=== PATIENT | female | born 1955 | race Caucasian/White ===

== ENCOUNTER 2019-02-04 13:33 | Inpatient (IN) ==
--- OUTSIDE RECORDS SUMMARY | 2019-02-04 13:36 | External Medical Summary | Continuity of Care Document ---
:1955 Author Name Kaya Márquez Address Unavailable Unavailable , Care Team Providers Name Role Phone Charli Márquez Unavailable [email or web address] PCP, UNKNOWN Unavailable Unavailable Problems Active medical history not documented Allergies and Adverse Reactions Allergy history not documented Medications Medications not documented Procedures Procedures not documented Immunizations Immunizations not documented Plan of Treatment Planned Observations Planned Goals not documented Results No Known Results Results not documented
[2019-02-04] MEDS ORDERED: ONDANSETRON INJ 2 MG/ML 2 ML VIAL IV STA (14:11)
[2019-02-04] MEDS ORDERED: ACETAMINOPHEN 500 MG TAB PO STA (14:11)
[2019-02-04] MEDS ORDERED: KETOROLAC TROMETHAMINE 15 MG/ML VIAL IV STA (14:11)
[2019-02-04] MEDS ORDERED: cefTRIAXone SODIUM 2,000 MG/70 ML BAG IV STA (14:15)
--- NOTE | 2019-02-04 14:21 | Emergency Department Note ---
History of Present Illness General Chief complaint: Urinary Symptoms Stated complaint: FEVER,BODYACHE,HEADACHE Time Seen by Provider: 02/04/19 13:55 History of Present Illness Maximum Pain Intensity: 7 Patient is a 63-year-old female referred to the emergency department by her primary care provider for evaluation of urinary symptoms, fever, body muscle aches and a headache x3 days. Patient reports that she was in [place] for a conference this week, her symptoms started on Thursday with urinary frequency urgency and dysuria. The following day she was very chilled and had the shakes, but did not have a thermometer to take her temperature. When she returned home yesterday evening temperature was 102 F orally for which she took Tylenol. She has had a mild headache, feels generally achy and weak, has some cramping in her calves and admits to anorexia. She has been trying to drink a lot of water because she feels like she is dry. She denies any nausea, vomiting or diarrhea. She called her primary care provider this morning to make an appointment. They did call in a prescription for Bactrim for her, but she did not start this, rather went to the office this afternoon. She was noted to be febrile there, her urine dip in the office was "dirty" and given her symptoms, they referred her here to the emergency department. She does report aching across her low back, but no localized flank pain. She is on methotrexate weekly for rheumatoid arthritis. Home Medications Home Medications Medication Instructions Recorded Confirmed Type atorvastatin 40 mg PO QPM 02/04/19 02/04/19 History calcium carbonate-vitamin D3 1 tab PO DAILY 02/04/19 02/04/19 History [Calcium 600 + D(3)] cholecalciferol (vitamin D3) 1,000 unit PO DAILY 02/04/19 02/04/19 History [Vitamin D3] cyanocobalamin (vitamin B-12) 1,000 mcg IM UD 02/04/19 02/04/19 History cyclobenzaprine 10 mg PO DAILY 02/04/19 02/04/19 History folic acid 1 mg PO DAILY 02/04/19 02/04/19 History metformin 500 mg PO BIDM 02/04/19 02/04/19 History methotrexate sodium 20 mg PO WK 02/04/19 02/04/19 History metoprolol succinate 25 mg PO QPM 02/04/19 02/04/19 History omega 1-hgg-yul-fish oil [Fish Oil] 1 cap PO DAILY 02/04/19 02/04/19 History pediatric multivitamin 1 tab PO DAILY 02/04/19 02/04/19 History [Flintstones Multivitamin] tofacitinib [Xeljanz XR] 11 mg PO DAILY 02/04/19 02/04/19 History triamcinolone acetonide 1 applic TOPICAL BID PRN 02/04/19 02/04/19 History Allergies Allergy/AdvReac Type Severity Reaction Status Date / Time pseudoephedrine AdvReac Intermediate INCREASES Unverified 02/04/19 15:12 HEART RATE Past Med/Surg History Medical History Diabetes mellitus, type II (Chronic) Rheumatoid arthritis (Chronic) GALLEGOS (nonalcoholic steatohepatitis) (Chronic) Dyslipidemia (Chronic) CAD (coronary artery disease) (Chronic) "mild, non obstructive cath 2012 - 40% mid RCA lesion" Palpitations (Chronic) Uterine cancer (Chronic) Surgical History History of hysterectomy (Chronic) H/O laminectomy (Chronic) H/O gastric bypass (Chronic) H/O ventral hernia repair (Chronic) History of tonsillectomy and adenoidectomy (Chronic) Family History Other Alzheimer disease Heart disease Thyroid disorder Social History Preferred Language: Khmer Communication Ability: Effective Chief Gauger Required: No Beliefs That Will Affect Care: None Current Living Situation: Spouse Other Information That Helps Us Care for You: No Feels Safe at Home: Yes Safety Concerns: Feels Safe At This Time Smoking Status: Never smoker Do You Dip or Chew Tobacco: No ; Second Hand Exposure: No ; Tobacco Cessation Education Requested by Patient: No Hx Alcohol Use: No Hx Substance Use: No Review of Systems A total of 10 systems reviewed and were otherwise negative Physical Exam Vital Signs Vital Signs - 24 hr 02/04/19 13:41 02/04/19 14:43 02/04/19 15:30 Temperature 39.1 C H 37.7 C H Temperature Source Oral Oral Sepsis Recent Fever Within 48 Hours Yes Sepsis New/Unexplained Change in Mental Status No Sepsis Action Taken by Nursing No Action Required Pulse Rate 121 H Pulse Rate [Right Finger] 93 H Pulse Rhythm Regular Pulse Rhythm [Right Finger] Regular Pulse Strength Normal Respiratory Rate 20 20 Respiratory Effort / Characteristics Non-Labored Spontaneous Non-Labored Respiratory Depth Normal Normal Respiratory Pattern Regular Regular Blood Pressure 173/80 H Blood Pressure [Right Arm] 133/83 Blood Pressure Mean 111 Blood Pressure Mean [Right Arm] 99 Blood Pressure Position Sitting Blood Pressure Position [Right Arm] Lying Pulse Oximetry 98 93 Oxygen Delivery Method Room Air Room Air 02/04/19 15:31 Temperature 37.7 C H Temperature Source Oral Sepsis Recent Fever Within 48 Hours Sepsis New/Unexplained Change in Mental Status Sepsis Action Taken by Nursing Pulse Rate Pulse Rate [Right Finger] Pulse Rhythm Pulse Rhythm [Right Finger] Pulse Strength Respiratory Rate Respiratory Effort / Characteristics Respiratory Depth Respiratory Pattern Blood Pressure Blood Pressure [Right Arm] Blood Pressure Mean Blood Pressure Mean [Right Arm] Blood Pressure Position Blood Pressure Position [Right Arm] Pulse Oximetry Oxygen Delivery Method CONSTITUTIONAL: Patient is a well-appearing 63-year-old female who is awake and alert and in no acute distress. She is nontoxic in appearance. EYES: Pupils equal, round, reactive to light and accommodation. EOMs intact without nystagmus. Sclera are anicteric. ENT: Tympanic membranes intact, with normal landmarks. External canals are clear. Oral and nasopharynx are clear. Mucous membranes are moist, no lesions, tongue and gums appear normal. CARDIOVASCULAR: Regular rate and rhythm, with normal S1 and S2, no murmur or gallop or rub is heard. Peripheral pulses easily palpable. RESPIRATORY: Breath sounds equal and clear to auscultation without wheezes, rales, or rhonchi heard. Full and equal chest expansion without accessory muscle use or retractions. ABDOMEN: Bowel sounds are present. Multiple well-healed surgical scars are noted. Abdomen is soft, mildly tender to palpation in the suprapubic region, no guarding, rebound or rigidity. She does have discomfort bilaterally with CVA percussion. INTEGUMENTARY: No lesions or rash, normal skin turgor. LYMPH: No lymphadenopathy. Course The patient was seen and assessed as above. Old records were reviewed. She does have paperwork [facility] which was also reviewed. She presents to the emergency department febrile and tachycardic with urinary symptoms and now back and side pain for the last 3 days. IV lock was initiated, she was hydrated with a total of 2 L of normal saline solution. She was medicated with Zofran for nausea, Toradol for fever and body muscle aches, and given Tylenol 1 g orally for her fever. She was given ceftriaxone 2 g IV empirically after laboratory studies and urine were collected. CBC with differential, CMP, urinalysis, [id number] lactic acid, urine culture and blood culture x2 were obtained. Given her symptoms, CT scan of the abdomen pelvis with IV contrast was ordered. I did discuss the patient with attending physician, Dr. Daniel, who agreed with the ED workup. Laboratory studies noted a slightly elevated white count at 11,200, with left shift noted. No anemia. Electrolytes are without significant abnormality. Renal functions are normal. Transaminases are not elevated. Lqxzm-dl-kukw lactic acid is normal at 1.25. Urine microscopy notes nitrates, leukocyte esterase, a large amount of WBCs and RBCs and 4+ bacteria. Urine culture and blood cultures x2 are pending. CT scan of the abdomen and pelvis is consistent with cystitis and ascending UTI with right-sided pyelonephritis. Laboratory and diagnostic imaging studies were reviewed with the patient and her family. Admission/observation for IV antibiotics due to the severity of her illness and immune compromised status was recommended and she expressed understanding and agreement. [facility] Patient's vital signs improved with fever management and IV hydration. She was afebrile and only slightly tachycardic, she remained normotensive. Administered Medications Discontinued Medications Acetaminophen (Tylenol) 1,000 mg PO NOW STA Stop: 02/04/19 14:12 Last Admin: 02/04/19 14:36 Dose: 1,000 mg Documented by: [id number] Sodium Chloride (Nss 1000ml) 1,000 mls @ 999 mls/hr IV .Q1H1M DIXON Stop: 02/04/19 16:13 Last Infusion: 02/04/19 15:40 Dose: 0 mls/hr Documented by: [id number] Admin: 02/04/19 14:37 Dose: 999 mls/hr Documented by: [id number] Ceftriaxone Sodium (Rocephin) 2,000 mg in 70 mls @ 140 mls/hr IV NOW STA Stop: 02/04/19 14:44 Last Infusion: 02/04/19 15:08 Dose: 0 mls/hr Documented by: [id number] Admin: 02/04/19 14:37 Dose: 140 mls/hr Documented by: [id number] Ioversol (Optiray 320 100ml) 92 ml IV ONCE PRN PRN Reason: Interaction Checking Stop: 02/08/19 15:18 Last Admin: 02/04/19 15:20 Dose: 92 ml Documented by: [id number] Ketorolac Tromethamine (Toradol) 15 mg IV NOW STA Stop: 02/04/19 14:12 Last Admin: 02/04/19 14:36 Dose: 15 mg Documented by: [id number] Ondansetron HCl (Zofran) 4 mg IV NOW STA Stop: 02/04/19 14:12 Last Admin: 02/04/19 14:36 Dose: 4 mg Documented by: [id number] Medical Decision Making Differential Diagnosis Differential diagnoses entertained included UTI, pyelonephritis, renal colic, sepsis, bowel obstruction, perforation, abscess, among others. Medical Records Attestation: I reviewed the patient's medical records. Home Medications Current Medication List: was personally reviewed by me Laboratory Data Attestation: I reviewed the patient's lab results. Result diagrams: 02/04/19 14:16 02/04/19 14:16 Lab Results 02/04/19 02/04/19 02/04/19 Range/Units 13:56 14:16 14:16 WBC 11.23 H (4.8-10.8) K/uL RBC 4.03 L (4.2-5.4) M/uL Hgb 12.8 (12.0-16.0) g/dL Hct 37.4 (37-47) % MCV 92.8 (80-100) fL MCH 31.8 (25-34) pg MCHC 34.2 (32-36) g/dL RDW Std Deviation 49.7 H (36.4-46.3) fL RDW Coeff of Kevin 14.6 H (11.5-14.5) % Plt Count 243 (130-400) K/uL MPV 9.5 (7.4-10.4) fL Immature Gran % (Auto) 0.2 % Neut % (Auto) 86.0 % Lymph % (Auto) 6.9 % Bledsoe % (Auto) 6.6 % Eos % (Auto) 0.1 % Baso % (Auto) 0.2 % Immature Gran # (Auto) 0.02 (0.00-0.02) K/uL Neut # (Auto) 9.66 H (1.4-6.5) K/uL Lymph # (Auto) 0.78 L (1.2-3.4) K/uL Bledsoe # (Auto) 0.74 H (0.11-0.59) K/uL Eos # (Auto) 0.01 (0-0.5) K/uL Baso # (Auto) 0.02 (0-0.2) K/uL Sodium 132 L (136-145) mmol/L Potassium 3.9 (3.5-5.1) mmol/L Chloride 101 (98-107) mmol/L Carbon Dioxide 21 (21-32) mmol/L Anion Gap 10.0 (3-11) BUN 13 (7-18) mg/dl Creatinine 0.83 (0.6-1.2) mg/dl Est Cr Clr Drug Dosing 75.2 ml/min Est GFR ( Amer) 86.4 Est GFR (Non-Af Amer) 74.5 BUN/Creatinine Ratio 15.5 (10-20) Glucose 171 H (70-99) mg/dl POC Lactic Acid Abdirizak (0.90-1.70) mmol/L Calcium 9.8 (8.5-10.1) mg/dl Total Bilirubin 1.0 (0.2-1) mg/dl AST 17 (15-37) U/L ALT 25 (12-78) U/L Alkaline Phosphatase 79 (45-117) U/L Total Protein 8.1 (6.4-8.2) gm/dl Albumin 3.6 (3.4-5.0) gm/dl Globulin 4.5 H (2.5-4.0) gm/dl Albumin/Globulin Ratio 0.8 L (0.9-2) Urine Color Dark Yellow Urine Appearance Turbid A (Clear) Urine pH 5.5 (4.5-7.5) Ur Specific [place] 1.019 (1.000-1.030) Urine Protein 2+ H (Negative) Urine Glucose (UA) Negative (Negative) Urine Ketones 1+ H (Negative) Urine Blood 2+ H (Negative) Urine Nitrite Positive A (Negative) Urine Bilirubin Negative (Negative) Urine Urobilinogen Negative (Negative) Ur Leukocyte Esterase 3+ H (Negative) Urine WBC (Auto) >30 H (0-5) /hpf Urine RBC (Auto) 10-30 H (0-4) /hpf U Hyaline Cast (Auto) 1-5 (0-5) /lpf U Epithel Cells (Auto) >30 H (0-5) /lpf Urine Bacteria (Auto) 4+ H (Negative) Urine Yeast Not Reportable 02/04/19 Range/Units 14:33 WBC (4.8-10.8) K/uL RBC (4.2-5.4) M/uL Hgb (12.0-16.0) g/dL Hct (37-47) % MCV (80-100) fL MCH (25-34) pg MCHC (32-36) g/dL RDW Std Deviation (36.4-46.3) fL RDW Coeff of Kevin (11.5-14.5) % Plt Count (130-400) K/uL MPV (7.4-10.4) fL Immature Gran % (Auto) % Neut % (Auto) % Lymph % (Auto) % Bledsoe % (Auto) % Eos % (Auto) % Baso % (Auto) % Immature Gran # (Auto) (0.00-0.02) K/uL Neut # (Auto) (1.4-6.5) K/uL Lymph # (Auto) (1.2-3.4) K/uL Bledsoe # (Auto) (0.11-0.59) K/uL Eos # (Auto) (0-0.5) K/uL Baso # (Auto) (0-0.2) K/uL Sodium (136-145) mmol/L Potassium (3.5-5.1) mmol/L Chloride (98-107) mmol/L Carbon Dioxide (21-32) mmol/L Anion Gap (3-11) BUN (7-18) mg/dl Creatinine (0.6-1.2) mg/dl Est Cr Clr Drug Dosing ml/min Est GFR ( Amer) Est GFR (Non-Af Amer) BUN/Creatinine Ratio (10-20) Glucose (70-99) mg/dl POC Lactic Acid Abdirizak 1.25 (0.90-1.70) mmol/L Calcium (8.5-10.1) mg/dl Total Bilirubin (0.2-1) mg/dl AST (15-37) U/L ALT (12-78) U/L Alkaline Phosphatase (45-117) U/L Total Protein (6.4-8.2) gm/dl Albumin (3.4-5.0) gm/dl Globulin (2.5-4.0) gm/dl Albumin/Globulin Ratio (0.9-2) Urine Color Urine Appearance (Clear) Urine pH (4.5-7.5) Ur Specific [place] (1.000-1.030) Urine Protein (Negative) Urine Glucose (UA) (Negative) Urine Ketones (Negative) Urine Blood (Negative) Urine Nitrite (Negative) Urine Bilirubin (Negative) Urine Urobilinogen (Negative) Ur Leukocyte Esterase (Negative) Urine WBC (Auto) (0-5) /hpf Urine RBC (Auto) (0-4) /hpf U Hyaline Cast (Auto) (0-5) /lpf U Epithel Cells (Auto) (0-5) /lpf Urine Bacteria (Auto) (Negative) Urine Yeast Imaging Data Attestation: I personally reviewed and interpreted this imaging study as follows: Radiologist's Impression: CT SCAN OF THE ABDOMEN AND PELVIS WITH IV CONTRAST CLINICAL HISTORY: Fever. Flank pain. Dysuria. COMPARISON STUDY: MRCP dated 06/14/2015. TECHNIQUE: Following the IV administration of 92 cc of Optiray 320, CT scan of the abdomen and pelvis is performed from the lung bases to the proximal femora. Images are reviewed in the axial, sagittal, and coronal planes. IV contrast was administered without complication. A dose lowering technique was utilized adhe ring to the principles of ALARA. CT DOSE: 1077.01 mGycm FINDINGS: Lung bases: The heart is normal in size and without pericardial effusion. The coronary arteries are densely calcified. The lung bases are clear noting bibasilar atelectasis. Liver: The contrast-enhanced liver is normal in size, contour, and attenuation. There is no intrahepatic biliary ductal dilatation. The hepatic veins and portal veins are patent. Gallbladder: Surgically absent noting clips in the gallbladder fossa. Spleen: Normal in size and attenuation. Pancreas: Unremarkable. Adrenal glands: Unremarkable. Kidneys: The contrast enhanced kidneys demonstrate cortical atrophy and are without hydronephrosis. There is heterogeneous perfusion of the right kidney with a striated nephrogram. The left kidney enhances homogeneously. There is urothelial thickening within the right ureter and the right renal pelvis with right-sided perinephric stranding. Abdominal vasculature: The abdominal aorta is normal in course and caliber noting advanced atherosclerotic calcification. Stomach and bowel: Postoperative changes consistent with a history of Oxana-en-Y gastric bypass procedure. There is no bowel obstruction. The appendix is well- visualized and normal. There is a large ventral hernia in the pelvis with diastases of the rectus musculature and protrusion of bowel loops. Peritoneum: There is no intraperitoneal free air or abdominal ascites. Lymphadenopathy: None. Pelvic viscera: The bladder wall appears circumferentially thickened and hyperemic. There is mild pericystic stranding. The uterus is surgically absent. No adnexal lesion is seen. Skeletal structures: The skeletal structures are osteopenic. Mild to moderate lumbosacral spondylosis is observed. No lytic or blastic lesions are seen. IMPRESSION: 1. Findings are typical for cystitis. 2. Findings suggest ascending urinary tract infection and right-sided pyelonephritis. Correlation with clinical findings and urinalysis will be required. 3. There is postoperative change consistent with a Oxana-en-Y gastric bypass procedure. No bowel obstruction is seen. 4. There is a large ventral hernia in the pelvis with diastases of the rectus musculature and protrusion of bowel loops. 5. Additional findings as above. Blood Pressure Blood Pressure Findings: Normal blood pressure Blood Pressure Disposition: did not require urgent referral MDM Narrative See ED Course. Impression & Plan Acute pyelonephritis Discharge Plan Visit Data *Final* Discharge Date/Time: 02/04/19 17:52 Chief Complaint: Urinary Symptoms Stated Complaint: FEVER,BODYACHE,HEADACHE ED Provider: Dejon Daniel ED Midlevel Provider: Warren Trent Discharge Problem: Acute pyelonephritis Patient Disposition: Admitted As Inpatient Discharge Instructions Interventions: ED Discharge Assessment Last Done: 02/04/19 17:52
[2019-02-04] MEDS: SODIUM CHLORIDE 0.9% 1000ML 1,000 ML IV SCH ×5 (14:37→20:47)
[2019-02-04 14:40] LABS: Basophils # (auto) 0.02 K/uL (0-0.2); Basophils % (auto) 0.2 %; Eosinophils # (auto) 0.01 K/uL (0-0.5); Eosinophils % (auto) 0.1 %; Hematocrit (blood only) 37.4 % (37-47); Hemoglobin 12.8 g/dL (12.0-16.0); Immature Granulocytes # (auto) 0.02 K/uL (0.00-0.02); Immature Granulocytes % (auto) 0.2 %; Lymphocytes # (auto) 0.78 K/uL (1.2-3.4); Lymphocytes % (auto) 6.9 %; Mean Corpuscular Hemoglobin 31.8 pg (25-34); Mean Corpuscular Hgb Conc 34.2 g/dL (32-36); Mean Corpuscular Volume 92.8 fL (80-100); Mean Platelet Volume 9.5 fL (7.4-10.4); Monocytes # (auto) 0.74 K/uL (0.11-0.59); Monocytes % (auto) 6.6 %; Neutrophils # (auto) 9.66 K/uL (1.4-6.5); Platelet Count 243 K/uL (130-400); RDW Coefficient of Variation 14.6 % (11.5-14.5); RDW Standard Deviation 49.7 fL (36.4-46.3); Red Blood Count 4.03 M/uL (4.2-5.4); White Blood Count 11.23 K/uL (4.8-10.8)
[2019-02-04 14:41] LABS: Appearance Urine Turbid (Clear); Bacteria Urine Automated 4+ (Negative); Bilirubin Urine Negative (Negative); Blood Urine 2+ (Negative); Color Urine Dark Yellow; Epithelial Cell Urine Auto >30 /lpf (0-5); Glucose Urine UA Negative (Negative); Ketones Urine 1+ (Negative); Leukocyte Esterase Urine 3+ (Negative); Nitrite Urine Positive (Negative); Protein Urine 2+ (Negative); Specific Gravity Urine 1.019 (1.000-1.030); Urobilinogen Urine Negative (Negative); WBC Urine Automated >30 /hpf (0-5); pH Urine 5.5 (4.5-7.5)
[2019-02-04 14:59] LABS: Albumin Level 3.6 gm/dl (3.4-5.0); BUN Creatinine Ratio 15.5 (10-20); Calcium 9.8 mg/dl (8.5-10.1); Creatinine Clr Calc Pharmacy 75.2 ml/min; Est GFR (African American) 86.4; Est GFR (Non-African American) 74.5; Potassium 3.9 mmol/L (3.5-5.1)
[2019-02-04 15:04] LABS: Albumin Globulin Ratio 0.8 (0.9-2); Globulin 4.5 gm/dl (2.5-4.0); Total Protein 8.1 gm/dl (6.4-8.2)
[2019-02-04] MEDS ORDERED: IOVERSOL 100ml IV PRN (15:19)
--- NOTE | 2019-02-04 15:34 | CT Scan Report ---
CT SCAN OF THE ABDOMEN AND PELVIS WITH IV CONTRAST CLINICAL HISTORY: Fever. Flank pain. Dysuria. COMPARISON STUDY: MRCP dated 06/14/2015. TECHNIQUE: Following the IV administration of 92 cc of Optiray 320, CT scan of the abdomen and pelvi s is performed from the lung bases to the proximal femora. Images are reviewed in the axial, sagittal , and coronal planes. IV contrast was administered without complication. A dose lowering technique wa s utilized adhering to the principles of ALARA. CT DOSE: 1077.01 mGycm FINDINGS: Lung bases: The heart is normal in size and without pericardial effusion. The coronary arteries are d ensely calcified. The lung bases are clear noting bibasilar atelectasis. Liver: The contrast-enhanced liver is normal in size, contour, and attenuation. There is no intrahepa tic biliary ductal dilatation. The hepatic veins and portal veins are patent. Gallbladder: Surgically absent noting clips in the gallbladder fossa. Spleen: Normal in size and attenuation. Pancreas: Unremarkable. Adrenal glands: Unremarkable. Kidneys: The contrast enhanced kidneys demonstrate cortical atrophy and are without hydronephrosis. T here is heterogeneous perfusion of the right kidney with a striated nephrogram. The left kidney enhan yesi homogeneously. There is urothelial thickening within the right ureter and the right renal pelvis with right-sided perinephric stranding. Abdominal vasculature: The abdominal aorta is normal in course and caliber noting advanced atheroscle rotic calcification. Stomach and bowel: Postoperative changes consistent with a history of Oxana-en-Y gastric bypass proced ure. There is no bowel obstruction. The appendix is well-visualized and normal. There is a large bill tral hernia in the pelvis with diastases of the rectus musculature and protrusion of bowel loops. Peritoneum: There is no intraperitoneal free air or abdominal ascites. Lymphadenopathy: None. Pelvic viscera: The bladder wall appears circumferentially thickened and hyperemic. There is mild per icystic stranding. The uterus is surgically absent. No adnexal lesion is seen. Skeletal structures: The skeletal structures are osteopenic. Mild to moderate lumbosacral spondylosis is observed. No lytic or blastic lesions are seen. IMPRESSION: 1. Findings are typical for cystitis. 2. Findings suggest ascending urinary tract infection and right-sided pyelonephritis. Correlation wit h clinical findings and urinalysis will be required. 3. There is postoperative change consistent with a Oxana-en-Y gastric bypass procedure. No bowel obstr uction is seen. 4. There is a large ventral hernia in the pelvis with diastases of the rectus musculature and protrus ion of bowel loops. 5. Additional findings as above. Electronically signed by: Dipesh Knight M.D. 02/04/2019 3:32 PM
--- NOTE | 2019-02-04 16:40 | History & Physical Report ---
Date of Service February 04, 2019 Assessment & Plan (1) Acute pyelonephritis: Pt is 63 y/o F with PMH HTN, dyslipidemia, RA, depression, obesity s/p gastric bypass, GERD, DM II, CAD presented with c/o dysuria, urinary frequency x 4 days. Also c/o fever 102F, generalized weakness, ALICIA, body aches, decreased appetite past couple of days. In ER T: 39.1, P: 121 down to 93, BP: 173/80 down to 133/83, 98% on RA. WBC: 11, Na corrected at 133 for glucose of 171, POC Lactate: 1.2. UA: consistent with UTI CT ABD/PELVIS:Findings are typical for cystitis. Findings suggest ascending urinary tract infection and right-sided pyelonephritis. Correlation with clinical findings and urinalysis will be required. There is postoperative change consistent with a Oxana-en-Y gastric bypass procedure. No bowel obstruction is seen. There is a large ventral hernia in the pelvis with diastases of the rectus musculature and protrusion of bowel loops. -In ER given Rocephin, 1L NSS, Tylenol, Zofran, Toradol -Blood cultures and Urine culture pending -Rocephin -IVF -CBC, BMP in am (2) Rheumatoid arthritis: Follows with Dr [facility] in [place] -Continue Flexeril -Hold Xeljanz, methotrexate with current infection (3) CAD (coronary artery disease): Mild non-obstructive disease on [id number] - 40% mid RCA lesion -Continue metoprolol, statin (4) Diabetes mellitus, type II: A1c: 7.3 on 08/27/18 -Hold metformin while in hospital -Metformin should be held for 48 hours after received IVP dye today -Novolog sliding scale per protocol (5) Dyslipidemia: -Continue statin DVT Prophylaxis -Lovenox SQ Follows with Dr Pastrana for routine care Pt was seen and care coordinated with Dr Diallo. See addendum History of Present Illness Chief Complaint: Dysuria, fever Primary Care Provider: Tad Pastrana MD Pt is 63 y/o F with PMH HTN, dyslipidemia, RA, depression, obesity s/p gastric bypass, GERD, DM II, CAD presented to ER with c/o dysuria, urinary frequency x 4 days. Also c/o fever 102F past couple of days with generalized weakness, ALICIA, body aches and decreased appetite. Taking Tylenol at home without much relief. Seen at PCP's office today and referred to ER secondary to fever and tachycardia. Chronic lower back pain, denies flank pain or abdominal pain. Denies N/V/D/C, dizziness, syncope, vision changes, neck pain, CP, SOB, orthopnea, palpitations, cough, sore throat, choking, otalgia, rhinorrhea, paresthesias, weakness, extremity weakness, extremity edema, rashes, hematuria. Denies recent infections. Allergies Allergy/AdvReac Type Severity Reaction Status Date / Time pseudoephedrine AdvReac Intermediate INCREASES Unverified 02/04/19 15:12 HEART RATE Home Medications Home Medications Medication Instructions Recorded Confirmed Type atorvastatin 40 mg PO QPM 02/04/19 02/04/19 History calcium carbonate-vitamin D3 1 tab PO DAILY 02/04/19 02/04/19 History [Calcium 600 + D(3)] cholecalciferol (vitamin D3) 1,000 unit PO DAILY 02/04/19 02/04/19 History [Vitamin D3] cyanocobalamin (vitamin B-12) 1,000 mcg IM UD 02/04/19 02/04/19 History cyclobenzaprine 10 mg PO DAILY 02/04/19 02/04/19 History folic acid 1 mg PO DAILY 02/04/19 02/04/19 History metformin 500 mg PO BIDM 02/04/19 02/04/19 History methotrexate sodium 20 mg PO WK 02/04/19 02/04/19 History metoprolol succinate 25 mg PO QPM 02/04/19 02/04/19 History omega 0-zzx-mxg-fish oil [Fish Oil] 1 cap PO DAILY 02/04/19 02/04/19 History pediatric multivitamin 1 tab PO DAILY 02/04/19 02/04/19 History [Flintstones Multivitamin] tofacitinib [Xeljanz XR] 11 mg PO DAILY 02/04/19 02/04/19 History triamcinolone acetonide 1 applic TOPICAL BID PRN 02/04/19 02/04/19 History Past Med/Surg History Medical History Diabetes mellitus, type II (Chronic) Rheumatoid arthritis (Chronic) GALLEGOS (nonalcoholic steatohepatitis) (Chronic) Dyslipidemia (Chronic) CAD (coronary artery disease) (Chronic) "mild, non obstructive cath 2012 - 40% mid RCA lesion" Palpitations (Chronic) Uterine cancer (Chronic) Surgical History History of hysterectomy (Chronic) H/O laminectomy (Chronic) H/O gastric bypass (Chronic) H/O ventral hernia repair (Chronic) History of tonsillectomy and adenoidectomy (Chronic) Family History Other Alzheimer disease Heart disease Thyroid disorder Social History Preferred Language: Romanian Smoking Status: Never smoker Hx Alcohol Use: No Hx Substance Use: No Review of Systems Review of Systems: All systems reviewed & are unremarkable except as noted in HPI & below Physical Exam Physical Exam: General: no acute distress, obese Head: normocephalic, atraumatic Eyes: PERRL, EOM's intact, conjunctiva non-injected, anicteric ENT: normal inspection external ears, nose, mucous membranes dry Neck: supple, trachea midline Lungs: clear, no respiratory distress, no wheezing/rhonchi/rales CV: RRR, no murmur, no pretibial edema Abd: normal BS, soft, non-tender, +R CVA flank tenderness Ext: no cyanosis, no calf tenderness Neuro: A&O x 3, no focal deficits noted, normal affect Skin: warm, dry Results & Data Vital Signs (Past 12 Hours) Vital Signs Temp Pulse Pulse Resp BP BP Pulse Ox 02/04/19 16:25 76 16 124/78 96 02/04/19 15:31 37.7 C H 02/04/19 15:30 37.7 C H 02/04/19 14:43 93 H 20 133/83 93 02/04/19 13:41 39.1 C H 121 H 20 173/80 H 98 Laboratory Results Short CBC 02/04/19 Range/Units 14:16 WBC 11.23 H (4.8-10.8) K/uL Hgb 12.8 (12.0-16.0) g/dL Hct 37.4 (37-47) % Plt Count 243 (130-400) K/uL BMP 02/04/19 14:16 Sodium 132 L Potassium 3.9 Chloride 101 Carbon Dioxide 21 BUN 13 Creatinine 0.83 Glucose 171 H Calcium 9.8 Liver Function 02/04/19 Range/Units 14:16 Total Bilirubin 1.0 (0.2-1) mg/dl AST 17 (15-37) U/L ALT 25 (12-78) U/L Alkaline Phosphatase 79 (45-117) U/L Albumin 3.6 (3.4-5.0) gm/dl Urine 02/04/19 Range/Units 13:56 Urine Color Dark Yellow Urine Appearance Turbid A (Clear) Urine pH 5.5 (4.5-7.5) Ur Specific [place] 1.019 (1.000-1.030) Urine Protein 2+ H (Negative) Urine Glucose (UA) Negative (Negative) Diagnostic Findings CT ABD/PELVIS: IMPRESSION: 1. Findings are typical for cystitis. 2. Findings suggest ascending urinary tract infection and right-sided pyelonephritis. Correlation with clinical findings and urinalysis will be required. 3. There is postoperative change consistent with a Oxana-en-Y gastric bypass procedure. No bowel obstruction is seen. 4. There is a large ventral hernia in the pelvis with diastases of the rectus musculature and protrusion of bowel loops. 5. Additional findings as above. Code Status & VTE Plan VTE Prophylaxis Plan VTE Prophylaxis will be ordered: Yes Supervising Physician Co-Signing Physician Notes Attending addendum The patient was seen and examined in the emergency room He has been complaining of fever with a.m. frequency and burning during urination for the last 2 days Has been complaining of back pain is well denies any nausea and/or vomiting No chest pain and/or palpitation On examination No apparent distress at rest She is febrile at 39.1 otherwise hemoglobin stable Chest-clear to auscultate bilaterally Heart-S1-S2, regular Abdomen-soft, no tenderness in the renal angles, minimal hypogastric tenderness Extremities-no edema Admission labs and imaging studies reviewed Right-sided ascending pyelonephritis was noted in the abdominal CT scan Appropriate cultures were taken and she was started with intravenous ceftriaxone Reviewed assessment and plan as outlined above WILLIAM Jarrett DR
[2019-02-04] MEDS ORDERED: GLUCAGON FOR INJ 1 MG VIAL SQ PRN (18:04)
[2019-02-04] MEDS ORDERED: CARBOHYDRATES FOR HYPOGLYCEMIA PO PRN (18:04)
[2019-02-04] MEDS ORDERED: GLUCOSE 10 TABS/TUBE PO PRN (18:04)
[2019-02-04] MEDS ORDERED: TRIAMCINOLONE ACET 0.1% OINT 15 GM TUBE TOP PRN (18:04)
[2019-02-04] MEDS ORDERED: GLUCOSE 40% GEL 15 GM TUBE PO PRN (18:04)
[2019-02-04] MEDS ORDERED: ONDANSETRON INJ 2 MG/ML 2 ML VIAL IV PRN (18:04)
[2019-02-04] MEDS ORDERED: DEXTROSE 50% 50 ML SYRINGE IV PRN (18:04)
[2019-02-04] MEDS: INSULIN ASPART 100 UNITS/ML 3 ML PEN SC SCH ×2 (19:31→20:56)
[2019-02-04] MEDS: METOPROLOL SUCC 25MG EXT REL TAB PO SCH (20:50)
[2019-02-04] MEDS: ATORVASTATIN 40 MG TAB PO SCH (20:50)
[2019-02-04] MEDS: ENOXAPARIN INJ 40 MG/0.4 ML SYR SQ SCH (20:50)
[2019-02-04] MEDS: ACETAMINOPHEN 325 MG TAB PO PRN (20:54)
[2019-02-04] MEDS ORDERED: INFLUENZA ADMINISTRATION CHARGE ONE (21:30)
[2019-02-04] MEDS ORDERED: PNEUMOCOCCAL ADMINISTRATION CHARGE ONE (21:30)
[2019-02-04] MEDS ORDERED: INFLUENZA VIRUS QUAD VACCINE 0.5 ML SYR IM ONE (21:30)
[2019-02-04] MEDS ORDERED: PNEUMOCOCCAL POLYSACCHARIDES 25 MCG/0.5 ML VIAL/SYR IM ONE (21:30)
[2019-02-04] MEDS ORDERED: CEFEPIME CONSULT ACTIVE PRN (22:48)
--- NOTE | 2019-02-04 22:50 | Hospitalist Progress Note ---
Date of Service February 04, 2019 Subjective Intermittent fever spikes as per RN despite IV Ceftriaxone rx. AP Sepsis secondary to complicated UTI IV Cefepime for enhanced gram-negative coverage in place of IV Ceftriaxone for now. Results & Data Vital Signs (Past 12 Hours) Vital Signs Temp Pulse Pulse Resp BP BP Pulse Ox 02/04/19 22:26 38.1 C H 86 23 143/80 H 94 02/04/19 21:33 39.3 C H 02/04/19 17:59 37.3 C 92 H 18 164/83 H 97 02/04/19 16:25 76 16 124/78 96 02/04/19 15:31 37.7 C H 02/04/19 15:30 37.7 C H 02/04/19 14:43 93 H 20 133/83 93 02/04/19 13:41 39.1 C H 121 H 20 173/80 H 98
[2019-02-04] MEDS ORDERED: CEFEPIME 2,000 MG in SYRINGE 7.5 ML IV STA (22:56)
[2019-02-05] MEDS: ACETAMINOPHEN 325 MG TAB PO PRN ×3 (01:11→18:59)
[2019-02-05] MEDS: SODIUM CHLORIDE 0.9% 1000ML 1,000 ML IV SCH ×2 (04:40→12:20)
[2019-02-05 05:24] LABS: Basophils # (auto) 0.02 K/uL (0-0.2); Basophils % (auto) 0.2 %; Eosinophils # (auto) 0.03 K/uL (0-0.5); Eosinophils % (auto) 0.4 %; Hematocrit (blood only) 34.5 % (37-47); Hemoglobin 11.2 g/dL (12.0-16.0); Immature Granulocytes # (auto) 0.01 K/uL (0.00-0.02); Immature Granulocytes % (auto) 0.1 %; Lymphocytes # (auto) 1.23 K/uL (1.2-3.4); Lymphocytes % (auto) 14.7 %; Mean Corpuscular Hemoglobin 30.8 pg (25-34); Mean Corpuscular Hgb Conc 32.5 g/dL (32-36); Mean Corpuscular Volume 94.8 fL (80-100); Mean Platelet Volume 9.6 fL (7.4-10.4); Monocytes # (auto) 0.92 K/uL (0.11-0.59); Neutrophils # (auto) 6.13 K/uL (1.4-6.5); Neutrophils % (auto) 73.6 %; Platelet Count 182 K/uL (130-400); RDW Coefficient of Variation 14.6 % (11.5-14.5); RDW Standard Deviation 49.8 fL (36.4-46.3); Red Blood Count 3.64 M/uL (4.2-5.4); White Blood Count 8.34 K/uL (4.8-10.8)
[2019-02-05 05:52] LABS: BUN Creatinine Ratio 14.8 (10-20); Calcium 8.1 mg/dl (8.5-10.1); Creatinine Clr Calc Pharmacy 82.1 ml/min; Est GFR (African American) 96.1; Est GFR (Non-African American) 82.9; Potassium 3.9 mmol/L (3.5-5.1)
[2019-02-05] MEDS: OMEGA-3 (PURIFIED FISH OIL) 1 GM CAP PO SCH (08:29)
[2019-02-05] MEDS: CALCIUM 600MG + VIT D 400 IU TAB PO SCH (08:29)
[2019-02-05] MEDS: CHOLECALCIFEROL 1,000 UNITS TAB PO SCH (08:29)
[2019-02-05] MEDS: FOLIC ACID 1 MG TAB PO SCH (08:29)
[2019-02-05] MEDS: FLINTSTONES COMPLETE CHEWABLE TAB PO SCH (08:29)
[2019-02-05] MEDS: CYCLOBENZAPRINE HCL 10 MG TAB PO SCH (08:31)
[2019-02-05] MEDS: INSULIN ASPART 100 UNITS/ML 3 ML PEN SC SCH ×4 (08:33→21:40)
[2019-02-05] MEDS: CEFEPIME 2,000 MG in SYRINGE 7.5 ML IV SCH ×2 (09:14→16:47)
[2019-02-05] MEDS ORDERED: CEFEPIME 2,000 MG in SYRINGE 7.5 ML IV SCH (12:00)
[2019-02-05] MEDS ORDERED: cefTRIAXone SODIUM 2,000 MG in DEXTROSE 5% 50 ML IV SCH (14:00)
--- NOTE | 2019-02-05 16:28 | Hospitalist Progress Note ---
Date of Service February 05, 2019 Assessment & Plan (1) Sepsis: (1)SEPSIS SECONDARY TO PYELONEPHRITIS- E COLI, BACTEREMIA CT ABD/PELVIS:Findings are typical for cystitis. Findings suggest ascending urinary tract infection and right-sided pyelonephritis. Correlation with clinical findings and urinalysis will be required. There is postoperative change consistent with a Oxana-en-Y gastric bypass procedure. No bowel obstruction is seen. There is a large ventral hernia in the pelvis with diastases of the rectus musculature and protrusion of bowel loops. Urine culture: (+) E coli Blood culture: gram negative bacilli -- fever improving clinically improving -- continue Cefepime IV -- hold Methotrexate and Xeljanz (2) Rheumatoid arthritis: Follows with Dr [facility] in [place] -Continue Flexeril -Hold Xeljanz, methotrexate (3) CAD (coronary artery disease): Mild non-obstructive disease on [id number] - 40% mid RCA lesion -Continue metoprolol, statin (4) Diabetes mellitus, type II: A1c: 7.3 on 08/27/18 -Hold metformin while in hospital -Metformin should be held for 48 hours after received IVP dye today -Novolog sliding scale per protocol (5) Dyslipidemia: -Continue statin DVT prophylaxis Lovenox Disposition lives at home anticipate discharge to home when medically stable Subjective ff up for pyelonephritis, bacteremia seen sitting up in bed, comfortable not in distress states she feels improved compared to yesterday still has some mild headache, body aches, weakness denies abdominal or flank pain denies urinary symptoms no other symptoms Review of Systems Review of Systems: All systems reviewed & are unremarkable except as noted in HPI & below Physical Exam Physical Exam: General- oriented x 3, not in distress, speaks in sentences with no effort or accessory muscle use Head- atraumatic Eyes- PERRL, EOMI, anicteric ENT- oropharynx clear Neck- supple, no JVD, no adenopathy, no thyromegaly; carotids +2/2, no bruits appreciated Lungs- clear to auscultation bilaterally, no rales/wheezes Heart- normal rate, regular rhythm; no murmur, no gallop, no rub appreciated Abdomen- normal bowel sounds, nondistended, soft, nontender, no masses or hepatosplenomegaly Extremities- no pretibial edema, no calf tenderness; peripheral pulses intact Neuro- alert, oriented x 3; CN 2-12 grossly intact; motor 5/5 bilaterally;sensation 100% on all extremities; no other gross focal neurologic deficits Skin- warm & dry Results & Data Vital Signs (Past 12 Hours) Vital Signs Temp Pulse Resp BP Pulse Ox 02/05/19 15:03 37.6 C H 82 17 130/70 94 02/05/19 07:31 37.9 C H 83 18 146/77 H 97 Laboratory Results Laboratory Results - last 24 hr 02/04/19 02/04/19 02/05/19 18:27 20:46 04:53 WBC 8.34 RBC 3.64 L Hgb 11.2 L Hct 34.5 L MCV 94.8 MCH 30.8 MCHC 32.5 RDW Std Deviation 49.8 H RDW Coeff of Kevin 14.6 H Plt Count 182 MPV 9.6 Immature Gran % (Auto) 0.1 Neut % (Auto) 73.6 Lymph % (Auto) 14.7 [place] % (Auto) 11.0 Eos % (Auto) 0.4 Baso % (Auto) 0.2 Immature Gran # (Auto) 0.01 Neut # (Auto) 6.13 Lymph # (Auto) 1.23 [place] # (Auto) 0.92 H Eos # (Auto) 0.03 Baso # (Auto) 0.02 Sodium Potassium Chloride Carbon Dioxide Anion Gap BUN Creatinine Est Cr Clr Drug Dosing Est GFR ( Amer) Est GFR (Non-Af Amer) BUN/Creatinine Ratio Glucose POC Glucose 104 H 133 H Calcium 02/05/19 02/05/19 02/05/19 04:53 08:03 12:06 WBC RBC Hgb Hct MCV MCH MCHC RDW Std Deviation RDW Coeff of Kevin Plt Count MPV Immature Gran % (Auto) Neut % (Auto) Lymph % (Auto) [place] % (Auto) Eos % (Auto) Baso % (Auto) Immature Gran # (Auto) Neut # (Auto) Lymph # (Auto) [place] # (Auto) Eos # (Auto) Baso # (Auto) Sodium 138 Potassium 3.9 Chloride 109 H Carbon Dioxide 26 Anion Gap 3.0 BUN 11 Creatinine 0.76 Est Cr Clr Drug Dosing 82.1 Est GFR ( Amer) 96.1 Est GFR (Non-Af Amer) 82.9 BUN/Creatinine Ratio 14.8 Glucose 149 H POC Glucose 135 H 141 H Calcium 8.1 L D
[2019-02-05] MEDS: ATORVASTATIN 40 MG TAB PO SCH (20:41)
[2019-02-05] MEDS: METOPROLOL SUCC 25MG EXT REL TAB PO SCH (20:41)
[2019-02-05] MEDS: ENOXAPARIN INJ 40 MG/0.4 ML SYR SQ SCH (20:42)
[2019-02-06] MEDS: CEFEPIME 2,000 MG in SYRINGE 7.5 ML IV SCH ×2 (01:36→08:04)
--- NOTE | 2019-02-06 07:40 | Infectious Disease Consult ---
Date of Consultation February 06, 2019 Assessment & Plan (1) Sepsis: continue current abx, await ID gnr in initial blood cultures, suspect will be E. coli as well. repeat cultures negative to date. will need 14 days abx from first negative culture, final recs based on sensitivities, will follow. hopefully can d/c on po abx. (2) Acute pyelonephritis: History of Present Illness Attending Physician: Willie Silva MD pt admitted with pain and fever, tma 02/04 39.1, 02/05 39.2, afebrile overnight. feeling much better today. on Cefepime and tolerating well. no abd pain, little appetite but denies n/v/d. no gu symptoms currently UA >30 wbc, +4 bacteria, ct in ER pyelonephritis, 02/04 urine culture E. coli, blood cultures gnr. no abd pain, no cp, sob, cough. Allergies Allergy/AdvReac Type Severity Reaction Status Date / Time pseudoephedrine AdvReac Intermediate INCREASES Unverified 02/04/19 15:12 HEART RATE Home Medications Home Medications Medication Instructions Recorded Confirmed Type atorvastatin 40 mg PO QPM 02/04/19 02/04/19 History calcium carbonate-vitamin D3 1 tab PO DAILY 02/04/19 02/04/19 History [Calcium 600 + D(3)] cholecalciferol (vitamin D3) 1,000 unit PO DAILY 02/04/19 02/04/19 History [Vitamin D3] cyanocobalamin (vitamin B-12) 1,000 mcg IM UD 02/04/19 02/04/19 History cyclobenzaprine 10 mg PO DAILY 02/04/19 02/04/19 History folic acid 1 mg PO DAILY 02/04/19 02/04/19 History metformin 500 mg PO BIDM 02/04/19 02/04/19 History methotrexate sodium 20 mg PO WK 02/04/19 02/04/19 History metoprolol succinate 25 mg PO QPM 02/04/19 02/04/19 History omega 9-ray-jhi-fish oil [Fish Oil] 1 cap PO DAILY 02/04/19 02/04/19 History pediatric multivitamin 1 tab PO DAILY 02/04/19 02/04/19 History [Flintstones Multivitamin] tofacitinib [Xeljanz XR] 11 mg PO DAILY 02/04/19 02/04/19 History triamcinolone acetonide 1 applic TOPICAL BID PRN 02/04/19 02/04/19 History Patient History Medical History Diabetes mellitus, type II (Chronic) Rheumatoid arthritis (Chronic) GALLEGOS (nonalcoholic steatohepatitis) (Chronic) Dyslipidemia (Chronic) CAD (coronary artery disease) (Chronic) "mild, non obstructive cath 2012 - 40% mid RCA lesion" Palpitations (Chronic) Uterine cancer (Chronic) Surgical History History of hysterectomy (Chronic) H/O laminectomy (Chronic) H/O gastric bypass (Chronic) H/O ventral hernia repair (Chronic) History of tonsillectomy and adenoidectomy (Chronic) Family History Other Alzheimer disease Heart disease Thyroid disorder Social History Preferred Language: Bulgarian Communication Ability: Effective Production Scheduler Required: No Beliefs That Will Affect Care: None Current Living Situation: Spouse Other Information That Helps Us Care for You: No Feels Safe at Home: Yes Safety Concerns: Feels Safe At This Time Smoking Status: Never smoker Do You Dip or Chew Tobacco: No ; Second Hand Exposure: No ; Tobacco Cessation Education Requested by Patient: No Hx Alcohol Use: No Hx Substance Use: No Review of Systems Review of Systems: All systems reviewed & are unremarkable except as noted in HPI & below Physical Exam Constitutional: WD/WN, vitals as above Eyes: PERRL, conjunctivae normal, anicteric sclerae ENMT: external ear and nose normal, oropharynx normal Neck: normal visual inspection Respiratory: normal respiratory effort, lungs clear to auscultation Cardiovascular: RRR, no murmur, no edema Gastrointestinal (Abdomen): normal bowel sounds, soft, nontender, no hepatosplenomegaly Musculoskeletal: no cyanosis or clubbing, extremities motor strength 5/5 Skin: no rashes, warm and dry Psychiatric: A+Ox3, euthymic affect Results & Data Vital Signs (Past 12 Hours) Vital Signs Temp Pulse Pulse Resp BP BP Pulse Ox 02/06/19 07:20 37.4 C 71 16 118/65 95 02/05/19 23:03 37.3 C 75 16 127/79 97 02/05/19 20:38 37.8 C H 84 23 131/79 94 02/05/19 19:38 38.4 C H Laboratory Results Microbiology 02/04/19 13:56 Urine,Clean Catch Urine Culture - Preliminary Escherichia coli 02/04/19 14:29 Blood Aerobic Blood Culture - Preliminary No growth in Aerobic bottle after 24 hours. 02/04/19 14:29 Blood Anaerobic Blood Culture - Preliminary Gram negative bacilli 02/04/19 14:16 Blood Aerobic Blood Culture - Preliminary Gram negative bacilli 02/04/19 14:16 Blood Anaerobic Blood Culture - Preliminary Gram negative bacilli PG Care Time/CCT Total # of Minutes Spent Total Time Spent with Patient: Total time spent is greater than 50% in coordination of care (as documented) at patient's floor/unit and/or counseling patient:
[2019-02-06] MEDS: FLINTSTONES COMPLETE CHEWABLE TAB PO SCH (08:04)
[2019-02-06] MEDS: OMEGA-3 (PURIFIED FISH OIL) 1 GM CAP PO SCH (08:04)
[2019-02-06] MEDS: CHOLECALCIFEROL 1,000 UNITS TAB PO SCH (08:04)
[2019-02-06] MEDS: CYCLOBENZAPRINE HCL 10 MG TAB PO SCH (08:04)
[2019-02-06] MEDS: FOLIC ACID 1 MG TAB PO SCH (08:04)
[2019-02-06] MEDS: CALCIUM 600MG + VIT D 400 IU TAB PO SCH (08:04)
[2019-02-06] MEDS: INSULIN ASPART 100 UNITS/ML 3 ML PEN SC SCH ×4 (09:05→21:07)
[2019-02-06] MEDS ORDERED: INFLUENZA ADMINISTRATION CHARGE ONE (09:45)
[2019-02-06] MEDS ORDERED: PNEUMOCOCCAL ADMINISTRATION CHARGE ONE (09:45)
[2019-02-06] MEDS ORDERED: PNEUMOCOCCAL POLYSACCHARIDES 25 MCG/0.5 ML VIAL/SYR IM ONE (09:45)
[2019-02-06] MEDS ORDERED: INFLUENZA VIRUS QUAD VACCINE 0.5 ML SYR IM ONE (09:45)
[2019-02-06 14:39] LABS: Basophils # (auto) 0.02 K/uL (0-0.2); Basophils % (auto) 0.5 %; Eosinophils # (auto) 0.19 K/uL (0-0.5); Eosinophils % (auto) 4.6 %; Hematocrit (blood only) 36.3 % (37-47); Hemoglobin 11.8 g/dL (12.0-16.0); Lymphocytes # (auto) 0.67 K/uL (1.2-3.4); Lymphocytes % (auto) 16.3 %; Mean Corpuscular Hemoglobin 30.6 pg (25-34); Mean Corpuscular Hgb Conc 32.5 g/dL (32-36); Mean Corpuscular Volume 94.3 fL (80-100); Mean Platelet Volume 9.8 fL (7.4-10.4); Monocytes # (auto) 0.53 K/uL (0.11-0.59); Monocytes % (auto) 12.9 %; Neutrophils # (auto) 2.71 K/uL (1.4-6.5); Neutrophils % (auto) 65.7 %; Platelet Count 219 K/uL (130-400); RDW Coefficient of Variation 14.6 % (11.5-14.5); RDW Standard Deviation 50.2 fL (36.4-46.3); Red Blood Count 3.85 M/uL (4.2-5.4); White Blood Count 4.12 K/uL (4.8-10.8)
[2019-02-06 14:55] LABS: BUN Creatinine Ratio 11.7 (10-20); Creatinine Clr Calc Pharmacy 74.3 ml/min; Est GFR (African American) 85.1; Est GFR (Non-African American) 73.4; Potassium 3.9 mmol/L (3.5-5.1)
[2019-02-06] MEDS: cefTRIAXone SODIUM 2,000 MG in DEXTROSE 5% 50 ML IV SCH (15:50)
--- NOTE | 2019-02-06 19:25 | Hospitalist Progress Note ---
Date of Service February 06, 2019 Assessment & Plan (1) Sepsis: (1)SEPSIS SECONDARY TO PYELONEPHRITIS- E COLI, BACTEREMIA CT ABD/PELVIS:Findings are typical for cystitis. Findings suggest ascending urinary tract infection and right-sided pyelonephritis. Correlation with clinical findings and urinalysis will be required. There is postoperative change consistent with a Oxana-en-Y gastric bypass procedure. No bowel obstruction is seen. There is a large ventral hernia in the pelvis with diastases of the rectus musculature and protrusion of bowel loops. Urine culture: (+) E coli Blood culture: gram negative bacilli -- fever continues to improve, afebrile since 8 PM yesterday --Transitioned from cefepime to ceftriaxone IV Appreciate ID recommendations Likely discharge on p.o. antibiotics x2 weeks upon discharge, anticipate discharge tomorrow -- hold Methotrexate and Xeljanz Will inform patient's rn wellness (2) Rheumatoid arthritis: Follows with Dr [facility] in [place] -Continue Flexeril -Hold Xeljanz, methotrexate (3) CAD (coronary artery disease): Mild non-obstructive disease on [id number] - 40% mid RCA lesion -Continue metoprolol, statin (4) Diabetes mellitus, type II: A1c: 7.3 on 08/27/18 -Hold metformin while in hospital -Metformin should be held for 48 hours after received IVP dye today -Novolog sliding scale per protocol (5) Dyslipidemia: -Continue statin DVT prophylaxis Lovenox Disposition lives at home anticipate discharge to home when medically stable Subjective Follow-up for sepsis, UTI, bacteremia Seen sitting up in bedside chair, having lunch In good spirits, comfortable, not in distress She feels improved today Denies abdominal pain, flank pain, urinary symptoms No chills Denies other symptoms Review of Systems Review of Systems: All systems reviewed & are unremarkable except as noted in HPI & below Physical Exam Physical Exam: General- oriented x 3, not in distress, speaks in sentences with no effort or accessory muscle use Eyes- anicteric Neck- no JVD Lungs- clear breath sounds bilaterally Heart- normal rate, regular rhythm; no murmurs Abdomen- normal bowel sounds, nondistended, soft, nontender No CVA tenderness Extremities- no pretibial edema, no calf tenderness Neuro- alert, oriented x 3; no gross focal neurologic deficits Skin- warm & dry Results & Data Vital Signs (Past 12 Hours) Vital Signs Temp Pulse Resp BP Pulse Ox 02/06/19 15:22 37.1 C 90 18 130/78 96 Laboratory Results Laboratory Results - last 24 hr 02/05/19 02/06/19 02/06/19 21:02 08:03 12:01 WBC RBC Hgb Hct MCV MCH MCHC RDW Std Deviation RDW Coeff of Kevin Plt Count MPV Immature Gran % (Auto) Neut % (Auto) Lymph % (Auto) [place] % (Auto) Eos % (Auto) Baso % (Auto) Immature Gran # (Auto) Neut # (Auto) Lymph # (Auto) [place] # (Auto) Eos # (Auto) Baso # (Auto) Sodium Potassium Chloride Carbon Dioxide Anion Gap BUN Creatinine Est Cr Clr Drug Dosing Est GFR ( Amer) Est GFR (Non-Af Amer) BUN/Creatinine Ratio Glucose POC Glucose 159 H 150 H 125 H Calcium 02/06/19 02/06/19 02/06/19 14:08 14:08 17:15 WBC 4.12 L RBC 3.85 L Hgb 11.8 L Hct 36.3 L MCV 94.3 MCH 30.6 MCHC 32.5 RDW Std Deviation 50.2 H RDW Coeff of Kevin 14.6 H Plt Count 219 MPV 9.8 Immature Gran % (Auto) 0.0 Neut % (Auto) 65.7 Lymph % (Auto) 16.3 [place] % (Auto) 12.9 Eos % (Auto) 4.6 Baso % (Auto) 0.5 Immature Gran # (Auto) 0.00 Neut # (Auto) 2.71 Lymph # (Auto) 0.67 L [place] # (Auto) 0.53 Eos # (Auto) 0.19 Baso # (Auto) 0.02 Sodium 137 Potassium 3.9 Chloride 105 Carbon Dioxide 26 Anion Gap 6.0 BUN 10 Creatinine 0.84 Est Cr Clr Drug Dosing 74.3 Est GFR ( Amer) 85.1 Est GFR (Non-Af Amer) 73.4 BUN/Creatinine Ratio 11.7 Glucose 231 H POC Glucose 124 H Calcium 9.0
[2019-02-06] MEDS: ATORVASTATIN 40 MG TAB PO SCH (20:40)
[2019-02-06] MEDS: ENOXAPARIN INJ 40 MG/0.4 ML SYR SQ SCH (20:40)
[2019-02-06] MEDS: METOPROLOL SUCC 25MG EXT REL TAB PO SCH (20:41)
[2019-02-07 06:30] LABS: Creatinine Clr Calc Pharmacy 93.1 ml/min; Est GFR (African American) 107.7; Est GFR (Non-African American) 92.9
[2019-02-07] MEDS: FLINTSTONES COMPLETE CHEWABLE TAB PO SCH (08:51)
[2019-02-07] MEDS: OMEGA-3 (PURIFIED FISH OIL) 1 GM CAP PO SCH (08:51)
[2019-02-07] MEDS: CALCIUM 600MG + VIT D 400 IU TAB PO SCH (08:51)
[2019-02-07] MEDS: FOLIC ACID 1 MG TAB PO SCH (08:51)
[2019-02-07] MEDS: CHOLECALCIFEROL 1,000 UNITS TAB PO SCH (08:51)
[2019-02-07] MEDS: INSULIN ASPART 100 UNITS/ML 3 ML PEN SC SCH ×2 (08:54→12:36)
[2019-02-07] MEDS: CYCLOBENZAPRINE HCL 10 MG TAB PO SCH (08:57)
--- NOTE | 2019-02-07 10:43 | Infectious Disease Progress Nt ---
Date of Service February 07, 2019 Assessment & Plan (1) Sepsis: can continue rocephin for now, will repeat blood cultures. can change to po keflex 500mg po bid x 14 days, suggest probiotics. no contraindication to d/c from ID standpoint when otherwise stable. (2) Acute pyelonephritis: Subjective pt feeling much better, no abd pain, no n/v/d. eating well. no cp, sob, cough. tolerating abx. afebrile >24hours. asking to go home. urine and blood cultures growing hayes sensitive E. coli. no repeat done. no am labs to review. Review of Systems Review of Systems: All systems reviewed & are unremarkable except as noted in HPI & below Physical Exam Constitutional: WD/WN, vitals as above Eyes: PERRL, conjunctivae normal, anicteric sclerae ENMT: external ear and nose normal, oropharynx normal Neck: normal visual inspection Respiratory: normal respiratory effort, lungs clear to auscultation Cardiovascular: RRR, no murmur, no edema Gastrointestinal (Abdomen): normal bowel sounds, soft, nontender, no hepatosplenomegaly Musculoskeletal: no cyanosis or clubbing, extremities motor strength 5/5 Skin: no rashes, warm and dry Psychiatric: A+Ox3, euthymic affect Results & Data Vital Signs (Past 12 Hours) Vital Signs Temp Pulse Resp BP Pulse Ox 02/07/19 07:09 37.3 C 70 18 125/78 94 02/06/19 23:14 36.9 C 75 16 145/82 H 96 Laboratory Results Microbiology 02/04/19 14:29 Blood Aerobic Blood Culture - Preliminary No growth in Aerobic bottle after 48 hours. 02/04/19 14:29 Blood Anaerobic Blood Culture - Preliminary Escherichia coli 02/04/19 14:16 Blood Aerobic Blood Culture - Final Escherichia coli 02/04/19 14:16 Blood Anaerobic Blood Culture - Final Escherichia coli 02/04/19 13:56 Urine,Clean Catch Urine Culture - Final Escherichia coli PG Care Time/CCT Total # of Minutes Spent Total Time Spent with Patient: Total time spent is greater than 50% in coordination of care (as documented) at patient's floor/unit and/or counseling patient:
--- NOTE | 2019-02-07 13:19 | Hospitalist Progress Note ---
Date of Service February 07, 2019 Assessment & Plan (1) Sepsis: (1)SEPSIS SECONDARY TO PYELONEPHRITIS- E COLI, BACTEREMIA CT ABD/PELVIS:Findings are typical for cystitis. Findings suggest ascending urinary tract infection and right-sided pyelonephritis. Correlation with clinical findings and urinalysis will be required. There is postoperative change consistent with a Oxana-en-Y gastric bypass procedure. No bowel obstruction is seen. There is a large ventral hernia in the pelvis with diastases of the rectus musculature and protrusion of bowel loops. Urine culture: (+) E coli pansensitive Blood culture: (+) E coli " -- patient's fever resolved clinically improved significantly --Transitioned from cefepime to ceftriaxone IV (4 days antibiotics total), ID recommends another 2 week course of Cephalexin 500mg BID advised to take Probiotics -- hold Methotrexate and Xeljanz until infection has cleared Will inform patient's fisher hand line Dr. Braga (2) Rheumatoid arthritis: Follows with Dr Braga Rheumatology in [place] - no arthralgias -Continue Flexeril -Hold Xeljanz, methotrexate until infection has cleared (3) CAD (coronary artery disease): Mild non-obstructive disease on [id number] - 40% mid RCA lesion -Continue metoprolol, statin (4) Diabetes mellitus, type II: A1c: 7.3 on 08/27/18 -resume Metformin (5) Dyslipidemia: -Continue statin Disposition d/c home ff up with PCP as outlined in discharge instructions Subjective ff up for uti, bacteremia seen resting in bedside chair, comfortable in good spirits states she feels fine overall no nausea, abdominal pain, urinary symptoms no chills states she feels much better states she is ready and would like to be discharged today Review of Systems Review of Systems: All systems reviewed & are unremarkable except as noted in HPI & below Physical Exam Physical Exam: General- oriented x 3, not in distress, speaks in sentences with no effort or accessory muscle use Eyes- anicteric Neck- no JVD Lungs- clear breath sounds bilaterally Heart- normal rate, regular rhythm; no murmurs Abdomen- normal bowel sounds, nondistended, soft, nontender Extremities- no pretibial edema, no calf tenderness Neuro- alert, oriented x 3; no gross focal neurologic deficits Skin- warm & dry Results & Data Vital Signs (Past 12 Hours) Vital Signs Temp Pulse Resp BP Pulse Ox 02/07/19 07:09 37.3 C 70 18 125/78 94 Laboratory Results Laboratory Results - last 24 hr 02/06/19 02/06/19 02/06/19 14:08 14:08 17:15 WBC 4.12 L RBC 3.85 L Hgb 11.8 L Hct 36.3 L MCV 94.3 MCH 30.6 MCHC 32.5 RDW Std Deviation 50.2 H RDW Coeff of Kevin 14.6 H Plt Count 219 MPV 9.8 Immature Gran % (Auto) 0.0 Neut % (Auto) 65.7 Lymph % (Auto) 16.3 [place] % (Auto) 12.9 Eos % (Auto) 4.6 Baso % (Auto) 0.5 Immature Gran # (Auto) 0.00 Neut # (Auto) 2.71 Lymph # (Auto) 0.67 L [place] # (Auto) 0.53 Eos # (Auto) 0.19 Baso # (Auto) 0.02 Sodium 137 Potassium 3.9 Chloride 105 Carbon Dioxide 26 Anion Gap 6.0 BUN 10 Creatinine 0.84 Est Cr Clr Drug Dosing 74.3 Est GFR ( Amer) 85.1 Est GFR (Non-Af Amer) 73.4 BUN/Creatinine Ratio 11.7 Glucose 231 H POC Glucose 124 H Calcium 9.0 02/06/19 02/07/19 02/07/19 20:33 04:53 08:07 WBC RBC Hgb Hct MCV MCH MCHC RDW Std Deviation RDW Coeff of Kevin Plt Count MPV Immature Gran % (Auto) Neut % (Auto) Lymph % (Auto) [place] % (Auto) Eos % (Auto) Baso % (Auto) Immature Gran # (Auto) Neut # (Auto) Lymph # (Auto) [place] # (Auto) Eos # (Auto) Baso # (Auto) Sodium Potassium Chloride Carbon Dioxide Anion Gap BUN Creatinine 0.67 Est Cr Clr Drug Dosing 93.1 Est GFR ( Amer) 107.7 Est GFR (Non-Af Amer) 92.9 BUN/Creatinine Ratio Glucose POC Glucose 146 H 158 H Calcium 02/07/19 12:10 WBC RBC Hgb Hct MCV MCH MCHC RDW Std Deviation RDW Coeff of Kevin Plt Count MPV Immature Gran % (Auto) Neut % (Auto) Lymph % (Auto) [place] % (Auto) Eos % (Auto) Baso % (Auto) Immature Gran # (Auto) Neut # (Auto) Lymph # (Auto) [place] # (Auto) Eos # (Auto) Baso # (Auto) Sodium Potassium Chloride Carbon Dioxide Anion Gap BUN Creatinine Est Cr Clr Drug Dosing Est GFR ( Amer) Est GFR (Non-Af Amer) BUN/Creatinine Ratio Glucose POC Glucose 138 H Calcium
--- NOTE | 2019-02-07 13:44 | Discharge Summary ---
Date of Service February 07, 2019 Admission HPI Per Admitting Provider Pt is 63 y/o F with PMH HTN, dyslipidemia, RA, depression, obesity s/p gastric bypass, GERD, DM II, CAD presented to ER with c/o dysuria, urinary frequency x 4 days. Also c/o fever 102F past couple of days with generalized weakness, ALICIA, body aches and decreased appetite. Taking Tylenol at home without much relief. Seen at PCP's office today and referred to ER secondary to fever and tachycardia. Chronic lower back pain, denies flank pain or abdominal pain. Denies N/V/D/C, dizziness, syncope, vision changes, neck pain, CP, SOB, orthopnea, palpitations, cough, sore throat, choking, otalgia, rhinorrhea, paresthesias, weakness, extremity weakness, extremity edema, rashes, hematuria. Denies recent infections. Admission Exam Per Admitting Provider General- oriented x 3, not in distress, speaks in sentences with no effort or accessory muscle use Eyes- anicteric Neck- no JVD Lungs- clear breath sounds bilaterally Heart- normal rate, regular rhythm; no murmurs Abdomen- normal bowel sounds, nondistended, soft, nontender Extremities- no pretibial edema, no calf tenderness Neuro- alert, oriented x 3; no gross focal neurologic deficits Skin- warm & dry Principal Diagnosis SEPSIS SECONDARY TO PYELONEPHRITIS- E COLI, BACTEREMIA Discharge Exam General- oriented x 3, not in distress, speaks in sentences with no effort or accessory muscle use Eyes- anicteric Neck- no JVD Lungs- clear breath sounds bilaterally, no wheezing, no crackles Heart- normal rate, regular rhythm; no murmurs Abdomen- normal bowel sounds, nondistended, soft, nontender Extremities- no pretibial edema, no calf tenderness Neuro- alert, oriented x 3; no gross focal neurologic deficits Skin- warm & dry Discharge Data Allergies Allergy/AdvReac Type Severity Reaction Status Date / Time pseudoephedrine AdvReac Intermediate INCREASES Unverified 02/04/19 15:12 HEART RATE Consultations 02/04/19 15:42 ED Decision to Admit Stat 02/05/19 08:11 Consult Infectious Diseases Routine Ordered Studies 02/04/19 14:15 CT abd pelvis IV con only Stat IMPRESSION: 1. Findings are typical for cystitis. 2. Findings suggest ascending urinary tract infection and right-sided pyelonephritis. Correlation with clinical findings and urinalysis will be required. 3. There is postoperative change consistent with a Oxana-en-Y gastric bypass procedure. No bowel obstruction is seen. 4. There is a large ventral hernia in the pelvis with diastases of the rectus musculature and protrusion of bowel loops. 5. Additional findings as above. Hospital Course (1) Sepsis: (1)SEPSIS SECONDARY TO PYELONEPHRITIS- E COLI, BACTEREMIA CT ABD/PELVIS:Findings are typical for cystitis. Findings suggest ascending urinary tract infection and right-sided pyelonephritis. Correlation with clinica l findings and urinalysis will be required. There is postoperative change consistent with a Oxana-en-Y gastric bypass procedure. No bowel obstruction is seen. There is a large ventral hernia in the pelvis with diastases of the rectus musculature and protrusion of bowel loops. Urine culture: (+) E coli pansensitive Blood culture: (+) E coli " -- patient's fever resolved clinically improved significantly --Transitioned from cefepime to ceftriaxone IV (4 days antibiotics total), ID recommends another 2 week course of Cephalexin 500mg BID advised to take Probiotics -- hold Methotrexate and Xeljanz until infection has cleared Will inform patient's diploma dental assistant Dr. Braga (2) Rheumatoid arthritis: Follows with Dr Braga Rheumatology in [place] - no arthralgias -Continue Flexeril -Hold Xeljanz, methotrexate until infection has cleared (3) CAD (coronary artery disease): Mild non-obstructive disease on [id number] - 40% mid RCA lesion - CT abdomen: The abdominal aorta is normal in course and caliber noting advanced atherosclerotic calcification. -Continue metoprolol, statin monitor as outpatient (4) Diabetes mellitus, type II: A1c: 7.3 on 08/27/18 -resume Metformin (5) Dyslipidemia: -Continue statin Disposition d/c home ff up with PCP as outlined in discharge instructions Total Time Total Time Spent Total Time Spent (In Minutes): 45 minutes Discharge Plan Discharge Items Patient Disposition: Home - Self-Care Reason For Visit: PYELONEPHRITIS Discharge Diagnosis: SEPSIS SECONDARY TO KIDNEY AND BLOODSTREAM INFECTION Condition on Discharge: Good Activity: As commented below Activity Comment: RESUME ACTIVITY GRADUALLY TOLERATED Lifting: Wait until after follow-up appointment Exercise/Sports: Wait until after follow-up appointment Driving/Machine Use: NO DRIVING UNTIL RE-EVALUATED BY PRIMARY CARE PHYSICIAN Non-emergency contact: Primary Care Provider Call non-emergency contact if: you have any medication questions, your symptoms worsen, your pain is not controlled, your pain is worsening, your pain is unusual for you, your pain is concerning for you and you have a fever Follow-up/Referrals: Tad Pastrana MD [Primary Care Provider] - 02/11/19 12:45 pm Diet: Carb Consistent or DM2 and Heart Healthy Addtl Attending Provider Instructions: PLEASE FOLLOW UP WITH PCP OUTLINE ABOVE AND WITH THE EMERGENCY MAN [facility]. YOUR NEW MEDICATION IS CEPHALEXIN (ANTIBIOTIC) X [address] BRAGA, YOU MAY RESUME YOUR XELJANZ AND METHOTREXATE 24 HOURS AFTER YOUR LAST DOSE OF ANTIBIOTIC (IN 2 WEEKS) PROVIDED THAT YOU HAVE NO FEVER WITHIN THAT 24 HOURS. IF YOU HAVE ANY MEDICATION QUESTIONS, PLEASE CALL YOUR PRIMARY CARE PHYSICIAN OR DR. BRAGA. CALL PRIMARY CARE PHYSICIAN OR RETURN TO THE ER IMMEDIATELY IF YOU HAVE WORSENING OF SYMPTOMS. EAT YOGURT AND TAKE PROBIOTICS DAILY. DRINK PLENTY OF FLUIDS. Pending Studies at Discharge: No Stand-Alone Forms: [facility] Medications and DC Order Prescriptions: New cephalexin 500 mg capsule 500 mg PO BID 14 Days Qty: 28 RF: 0 Continued atorvastatin 40 mg tablet 40 mg PO QPM RF: 0 metformin 500 mg tablet 500 mg PO BIDM RF: 0 pediatric multivitamin [Flintstones Multivitamin] Tablet,Chewable 1 tab PO DAILY RF: 0 triamcinolone acetonide 0.1 % ointment 1 applic topical BID PRN (Reason: itching/scratching) RF: 0 folic acid 1 mg tablet 1 mg PO DAILY RF: 0 metoprolol succinate 25 mg tablet extended release 24 hr 25 mg PO QPM RF: 0 cholecalciferol (vitamin D3) [Vitamin D3] 1,000 unit Capsule 1,000 unit PO DAILY RF: 0 calcium carbonate-vitamin D3 [Calcium 600 + D(3)] 600 mg(1,500mg) -400 unit Tablet 1 tab PO DAILY RF: 0 Fish Oil 950 mg-320 mg- 630 mg-1,360 mg Capsule 1 cap PO DAILY RF: 0 cyclobenzaprine 10 mg tablet 10 mg PO DAILY RF: 0 cyanocobalamin (vitamin B-12) 1,000 mcg/mL Solution 1,000 mcg IM UD RF: 0 Discontinued methotrexate sodium 2.5 mg tablet 20 mg PO WK RF: 0 Xeljanz XR 11 mg tablet extended release 24 hr 11 mg PO DAILY RF: 0 Discharge Orders: Discharge Order (Routine); Ordered 02/07/19 Ordered By: Willie Millard/Other Patient Handouts: Pyelonephritis Dc Admission Data Admit Date/Time: 02/04/19 16:22 Attending Provider: Willie Silva Admit Provider: Chico Diallo Primary Care Provider: Tad Pastrana Other Providers: Juli Laboy Other Interventions: Discharge Summary Assessment (RN) Last Done: 02/07/19 11:51 DC Date/Time DO NOT enter until pt leaves facility: 02/07/19 15:27
[2019-02-07] MEDS: cefTRIAXone SODIUM 2,000 MG in DEXTROSE 5% 50 ML IV SCH (14:17)
== END 2019-02-07 15:27 | disposition home or self-care (01) | DRG 872 ==
LOC: ED 13:33 → 3W 16:22 → SUATTDRO 16:22 → 3W 17:52

== ENCOUNTER 2019-08-28 14:42 | Observation (INO) ==
[2019-08-28] MEDS ORDERED: HYDROmorphone INJ 0.5 MG/0.5 ML SYR IV PRN (14:58)
[2019-08-28] MEDS ORDERED: DEXAMETHASONE **PF** INJ 10 MG/ML VIAL IV STA (14:58)
[2019-08-28] MEDS ORDERED: ONDANSETRON INJ 2 MG/ML 2 ML VIAL IV STA (14:58)
--- NOTE | 2019-08-28 15:07 | Emergency Department Note ---
Impression & Plan Neck pain on right side ED Provider Note NAME: DENIZ POLO AGE: 63 SEX: F ARRIVES VIA: Walk-In INFORMANT: [Patient] ED PROVIDER(S): Samm Funez MD CHIEF COMPLAINT: Neck pain PLAN: Disposition:-Admitted Condition: [Good] MEDICAL DECISION MAKING: Patient presented with right-sided neck pain and sore throat. Physical examination was concerning for peritonsillar abscess. Patient had a le ukocytosis on CBC. She underwent CT imaging and this did reveal a large mass in the peritonsillar region. I did consult with ENT, Dr. Boyle. He evaluated the patient in the ER. He recommended admission and he drained the patient her tonsillar abscess. I did consult with Dr. pickard of the [facility] service to admit the patient. Triage Nursing notes reviewed and agree them. Vital Signs: reviewed and remarkable for tachycardia and hypertension Differential diagnosis: Viral syndrome, tonsillitis, streptococcal pharyngitis, mononucleosis, peritonsillar abscess, retropharyngeal abscess, otitis, pneumonia, influenza, as well as other pathologies. ER treatment provided: IV Decadron IV Dilaudid IV Zofran IV Unasyn Diagnostics interpreted by me: Laboratory studies: [See below] mild leukocytosis on CBC. Chemistry panel unremarkable. Imaging studies: CT scan of the neck with contrast was performed. There is a large mass noted in the right peritonsillar region. Concerning for peritonsillar abscess. Radiology also question possible mass. Recommended ENT consultation. I refer you to the EMR for further details. Consultation(s): ENTDr. Boyle Internal medicine, Dr. Pickard HPI:The patient is a 59 year old female who presents to the Emergency Room with complaints of right-sided neck pain. This started several days ago and is worsening. The patient also notes the following associated symptoms, difficulty swallowing, swelling in the right side of her neck and right ear pain. The patient has prescribed amoxicillin for relieving factors. Current pain is rated as an 8/10. She was seen at the acute care walk-in and was prescribed amoxicillin for the throat pain and swelling. She had a negative strep test performed. She was told her ear examines normally. Pt denies LOC, headache, fevers, chills, diaphoresis, visual changes, chest pain, breathing difficulties, nausea, vomiting, abdominal pain, back pain, melena, hematochezia, urinary symptoms, numbness, weakness, lymphadenopathy, rash, or other complaints. ROS: See above HPI for pertinent positives & negatives. A total of [10] systems reviewed and were otherwise negative. PAST MEDICAL HISTORY:[See Below] diabetes, hypertension, arthritis on immunosuppression PAST SURGICAL HISTORY:[See Below]tonsillectomy FAMILY HISTORY:[See Below] SOCIAL HISTORY:[See Below] HOME MEDICATIONS:[See Below] ALLERGIES:[See Below] VITALS:[See Below] PHYSICAL EXAMINATION: GENERAL: Awake, alert, uncomfortable-appearing, in no distress HENT: Normocephalic, atraumatic. Oropharynx examination reveals a normal tongue and dentition. There is significant swelling with some uvular deviation to the left and the soft palate and peritonsillar region. Trismus present. EYES: Normal conjunctiva. Sclera non-icteric. NECK: Inspection feels right-sided swelling in the submandibular area. It is moderately tender. Supple. Right-sided tender adenopathy in the jugulodigastric chain. There is mild tenderness to the right parotid. No nuchal rigidity. FRO M. RESPIRATORY: Clear to auscultation. No wheezes. No rales. Normal respiratory effort. CARDIAC: Tachycardic rate. Normal rhythm. No murmurs. No rubs. Extremities warm and well perfused. Pulses equal. No JVD. GI: Soft, non-distended. No tenderness to palpation. No rebound or guarding. No masses. RECTAL: Deferred. MUSCULOSKELETAL: Atraumatic. Chest examination reveals no tenderness. The back i s symmetrical on inspection without obvious abnormality. There is no CVA tenderness to palpation. No joint edema. LOWER EXTREMITIES: Calves are equal size bilaterally and non-tender. No edema. No discoloration. NEURO: Normal sensorium. No sensory or motor deficits noted. SKIN: No rash or jaundice noted. ED COURSE: [Critical Care:] [None] Samm Funez MD Past Med/Surg History Medical History CAD (coronary artery disease) "mild, non obstructive cath 2012 - 40% mid RCA lesion" Diabetes mellitus, type II (Chronic) Dyslipidemia GALLEGOS (nonalcoholic steatohepatitis) Palpitations Rheumatoid arthritis Uterine cancer Surgical History H/O gastric bypass H/O laminectomy H/O ventral hernia repair History of hysterectomy History of tonsillectomy and adenoidectomy Family History Other Alzheimer disease Heart disease Thyroid disorder Social History Preferred Language: [place] Communication Ability: Effective Lead Principal Technical Architect Required: No Beliefs That Will Affect Care: None Current Living Situation: Spouse Feels Safe at Home: Yes Smoking Status: Never smoker Second Hand Exposure: No ; Hx Alcohol Use: No Hx Substance Use: No Allergies Allergies Allergy/AdvReac Type Severity Reaction Status Date / Time pseudoephedrine AdvReac Intermediate INCREASES Unverified 02/04/19 15:12 HEART RATE Home Meds Home Medications Medication Instructions Recorded Confirmed atorvastatin 40 mg PO QPM 02/04/19 08/28/19 calcium carbonate-vitamin D3 1 tab PO QPM 02/04/19 08/28/19 [Calcium 600 + D(3)] cholecalciferol (vitamin D3) 1,000 unit PO QPM 02/04/19 08/28/19 [Vitamin D3] cyanocobalamin (vitamin B-12) 1,000 mcg IM UD 02/04/19 08/28/19 cyclobenzaprine 10 mg PO QPM 02/04/19 08/28/19 folic acid 2 mg PO QPM 02/04/19 08/28/19 metformin 500 mg PO TID 02/04/19 08/28/19 metoprolol succinate 25 mg PO QPM 02/04/19 08/28/19 pediatric multivitamin 1 tab PO QPM 02/04/19 08/28/19 [Flintstones Multivitamin] amoxicillin-pot clavulanate 1 tab PO BID 08/28/19 08/28/19 lisinopril 5 mg PO QPM 08/28/19 08/28/19 methotrexate sodium 20 mg PO WK 08/28/19 08/28/19 omega-3 fatty acids [Fish Oil 1,000 mg PO QPM 08/28/19 08/28/19 Concentrate] tofacitinib [Xeljanz XR] 11 mg PO QPM 08/28/19 08/28/19 Results & Data (ED) Vital Signs Vital Signs - 24 hr 08/28/19 14:44 08/28/19 15:38 08/28/19 17:07 Temperature 37.0 C Temperature Source Oral Pulse Rate 118 H Pulse Rate [Right Finger] 85 Pulse Rhythm [Right Finger] Regular Pulse Strength [Right Finger] Normal Respiratory Rate 18 20 Respiratory Effort / Characteristics Non-Labored Non-Labored Spontaneous Respiratory Depth Normal Normal Respiratory Pattern Regular Blood Pressure 166/92 H Blood Pressure [Right Arm] 155/92 H Blood Pressure Mean 116 Blood Pressure Mean [Right Arm] 113 Blood Pressure Position Sitting Pulse Oximetry 97 98 Oxygen Delivery Method Room Air Room Air Room Air Sepsis Recent Fever Within 48 Hours No Sepsis New/Unexplained Change in Mental Status No Sepsis Action Taken by Nursing No Action Required 08/28/19 18:44 Temperature Temperature Source Pulse Rate Pulse Rate [Right Finger] 79 Pulse Rhythm [Right Finger] Regular Pulse Strength [Right Finger] Normal Respiratory Rate 20 Respiratory Effort / Characteristics Respiratory Depth Normal Respiratory Pattern Blood Pressure Blood Pressure [Right Arm] 181/90 H Blood Pressure Mean Blood Pressure Mean [Right Arm] 120 Blood Pressure Position Pulse Oximetry 99 Oxygen Delivery Method Room Air Sepsis Recent Fever Within 48 Hours Sepsis New/Unexplained Change in Mental Status Sepsis Action Taken by Nursing Laboratory Data Result diagrams: 08/28/19 15:47 08/28/19 15:47 Lab Results 08/28/19 08/28/19 08/28/19 Range/Units 15:47 15:47 Unknown WBC 11.34 H (4.8-10.8) K/uL RBC 4.19 L (4.2-5.4) M/uL Hgb 12.8 (12.0-16.0) g/dL Hct 38.8 (37-47) % MCV 92.6 (80-100) fL MCH 30.5 (25-34) pg MCHC 33.0 (32-36) g/dL RDW Std Deviation 50.9 H (36.4-46.3) fL RDW Coeff of Kevin 15.2 H (11.5-14.5) % Plt Count 267 (130-400) K/uL MPV 9.3 (7.4-10.4) fL Immature Gran % (Auto) 0.3 % Neut % (Auto) 86.0 % Lymph % (Auto) 5.2 % [place] % (Auto) 7.5 % Eos % (Auto) 0.8 % Baso % (Auto) 0.2 % Immature Gran # (Auto) 0.03 H (0.00-0.02) K/uL Neut # (Auto) 9.76 H (1.4-6.5) K/uL Lymph # (Auto) 0.59 L (1.2-3.4) K/uL [place] # (Auto) 0.85 H (0.11-0.59) K/uL Eos # (Auto) 0.09 (0-0.5) K/uL Baso # (Auto) 0.02 (0-0.2) K/uL Sodium 138 (136-145) mmol/L Potassium 4.3 (3.5-5.1) mmol/L Chloride 105 (98-107) mmol/L Carbon Dioxide 23 (21-32) mmol/L Anion Gap 10.0 (3-11) BUN 8 (7-18) mg/dl Creatinine 0.80 (0.6-1.2) mg/dl Est Cr Clr Drug Dosing 77.7 ml/min Est GFR ( Amer) 90.3 Est GFR (Non-Af Amer) 77.9 BUN/Creatinine Ratio 10.1 (10-20) Glucose 176 H (70-99) mg/dl Calcium 9.1 (8.5-10.1) mg/dl Total Bilirubin 0.5 (0.2-1) mg/dl AST 16 (15-37) U/L ALT 25 (12-78) U/L Alkaline Phosphatase 133 H (45-117) U/L Total Protein 8.0 (6.4-8.2) gm/dl Albumin 3.6 (3.4-5.0) gm/dl Globulin 4.4 H (2.5-4.0) gm/dl Albumin/Globulin Ratio 0.8 L (0.9-2) SARS-CoV-2 RNA (RT-PCR) Cancelled Administered Medications Hydromorphone HCl (Dilaudid) 0.5 mg IV Q15M PRN PRN Reason: Pain Stop: 09/11/19 14:57 Last Admin: 08/28/19 15:39 Dose: 0.5 mg Documented by: [id number] Ioversol (Optiray 320 100ml) 94 ml IV ONCE PRN PRN Reason: Interaction Checking Stop: 09/01/19 16:35 Last Admin: 08/28/19 16:36 Dose: 94 ml Documented by: [id number] Discontinued Medications Dexamethasone Sodium Phosphate (Decadron Pf) 10 mg IV NOW STA Stop: 08/28/19 14:59 Last Admin: 08/28/19 15:39 Dose: 10 mg Documented by: [id number] Ampicillin Sodium/Sulbactam Sodium 3,000 mg/ Sodium Chloride 108 mls @ 200 mls/hr IV NOW STA; Protocol Stop: 08/28/19 17:57 Last Infusion: 08/28/19 18:36 Dose: 0 mls/hr Documented by: [id number] Admin: 08/28/19 17:57 Dose: 200 mls/hr Documented by: [id number] Lidocaine/Epinephrine (Xylocaine/Epinephrine 1%) 20 ml INFIL NOW ONE Stop: 08/28/19 17:26 Last Admin: 08/28/19 17:58 Dose: 20 ml Documented by: [id number] Ondansetron HCl (Zofran) 4 mg IV NOW STA Stop: 08/28/19 14:59 Last Admin: 08/28/19 15:39 Dose: 4 mg Documented by: [id number] Discharge Plan Visit Data Chief Complaint: Neck Injury/Pain Stated Complaint: SWOLLEN NECK, TROUBLE TALKING/SWALLOWING ED Provider: Samm Funez Discharge Problem: Neck pain on right side Forms Stand Alone Forms: [facility] Prescriptions Prescriptions: No Action atorvastatin 40 mg tablet 40 mg PO QPM RF: 0 metformin 500 mg tablet 500 mg PO TID RF: 0 pediatric multivitamin [Flintstones Multivitamin] Tablet,Chewable 1 tab PO QPM RF: 0 folic acid 1 mg tablet 2 mg PO QPM RF: 0 metoprolol succinate 25 mg tablet extended release 24 hr 25 mg PO QPM RF: 0 cholecalciferol (vitamin D3) [Vitamin D3] 1,000 unit Capsule 1,000 unit PO QPM RF: 0 calcium carbonate-vitamin D3 [Calcium 600 + D(3)] 600 mg(1,500mg) -400 unit Tablet 1 tab PO QPM RF: 0 cyclobenzaprine 10 mg tablet 10 mg PO QPM RF: 0 cyanocobalamin (vitamin B-12) 1,000 mcg/mL Solution 1,000 mcg IM UD RF: 0 methotrexate sodium 2.5 mg tablet 20 mg PO WK RF: 0 lisinopril 5 mg tablet 5 mg PO QPM RF: 0 Xeljanz XR 11 mg tablet extended release 24 hr 11 mg PO QPM RF: 0 omega-3 fatty acids [Fish Oil Concentrate] 1,000 mg Capsule 1,000 mg PO QPM RF: 0 amoxicillin-pot clavulanate 875-125 mg tablet 1 tab PO BID RF: 0 Referrals Referrals: Tad Pastrana MD [Primary Care Provider] -
[2019-08-28 16:02] LABS: Basophils # (auto) 0.02 K/uL (0-0.2); Basophils % (auto) 0.2 %; Eosinophils # (auto) 0.09 K/uL (0-0.5); Eosinophils % (auto) 0.8 %; Hematocrit (blood only) 38.8 % (37-47); Hemoglobin 12.8 g/dL (12.0-16.0); Immature Granulocytes # (auto) 0.03 K/uL (0.00-0.02); Immature Granulocytes % (auto) 0.3 %; Lymphocytes # (auto) 0.59 K/uL (1.2-3.4); Lymphocytes % (auto) 5.2 %; Mean Corpuscular Hemoglobin 30.5 pg (25-34); Mean Corpuscular Volume 92.6 fL (80-100); Mean Platelet Volume 9.3 fL (7.4-10.4); Monocytes # (auto) 0.85 K/uL (0.11-0.59); Monocytes % (auto) 7.5 %; Neutrophils # (auto) 9.76 K/uL (1.4-6.5); Platelet Count 267 K/uL (130-400); RDW Coefficient of Variation 15.2 % (11.5-14.5); RDW Standard Deviation 50.9 fL (36.4-46.3); Red Blood Count 4.19 M/uL (4.2-5.4); White Blood Count 11.34 K/uL (4.8-10.8)
[2019-08-28 16:18] LABS: Albumin Level 3.6 gm/dl (3.4-5.0); BUN Creatinine Ratio 10.1 (10-20); Calcium 9.1 mg/dl (8.5-10.1); Creatinine Clr Calc Pharmacy 77.7 ml/min; Est GFR (African American) 90.3; Est GFR (Non-African American) 77.9; Potassium 4.3 mmol/L (3.5-5.1)
[2019-08-28 16:21] LABS: Albumin Globulin Ratio 0.8 (0.9-2); Bilirubin,Total 0.5 mg/dl (0.2-1); Globulin 4.4 gm/dl (2.5-4.0)
[2019-08-28] MEDS ORDERED: IOVERSOL 100ml IV PRN (16:36)
--- NOTE | 2019-08-28 17:12 | CT Scan Report ---
CT soft tissue neck w con HISTORY: Right neck swelling, ? KITCHEN WORK SUPERVISOR TECHNIQUE: Multiaxial CT images of the neck were performed following the use of intravenous contrast. COMPARISON STUDY: None. FINDINGS: Within the right parapharyngeal fat space adjacent to the right palatine tonsil there is an ill-defined intermediate density space-occupying focus which measures approximately 3.3 x 2.7 cm. Th is does not clearly demonstrate a peripheral enhancing wall. There is mild edema adjacent to this abn ormality and tracking along the right parapharyngeal fat space to the level of the thyroid cartilage. There is mild right pharyngeal mucosal thickening from the level of the uvula to the area epiglottic folds with slight effacement of the airway. The epiglottis and prevertebral soft tissues are normal in thickness. There are 2 mildly enlarged right intraparotid lymph nodes. The largest measures 8 mm. There is also suggestion of a 1 cm soft tissue mass/lymph node within the deep lobe of the right paro tid gland best seen on image 119. This may communicate with the right parapharyngeal mass. This area is difficult to assess due to the extensive dental artifact. Therefore, this abnormality favors a mas s and could be of parotid origin. Lymphadenopathy or a developing peritonsillar abscess could also koch ve a similar appearance. The submandibular and left parotid gland are within normal limits. The visua lized brain parenchyma and orbits are unremarkable. No left-sided cervical lymphadenopathy. The thyro id gland enhances normally. The lung apices are clear. No suspicious lytic are blastic osseous lesion s. Mild mucosal thickening within the right ethmoid air cells and left sphenoid sinus. The mastoid ai r cells are clear. The major cervical vessels enhance normally. IMPRESSION: 1. A 3.2 x 2.7 cm right parapharyngeal lesion adjacent to the right palatine tonsil as described abov e. This favors a mass and could be of parotid origin. However, a developing peritonsillar abscess or lymphadenopathy could also have a similar appearance. There are few mildly enlarged right parotid lym ph nodes as described above. ENT consultation recommended for further evaluation. Of note, this area is difficult to assess due to the extensive dental artifact. 2. This results in mild mucosal thickening within the right hypopharynx and slight mass effect along the airway. ACT 112: Negative or not required by law. Electronically signed by: Toni Maier M.D. 08/28/2019 5:10 PM
[2019-08-28] MEDS ORDERED: AMPICILLIN/SULBACTAM SOD 3,000 MG in 0.9 % SODIUM CHLORIDE 100 ML IV STA (17:25)
[2019-08-28] MEDS ORDERED: LIDOCAINE/EPINEPHRINE 1% 20 ML VIAL INFIL ONE (17:25)
--- NOTE | 2019-08-28 19:08 | ENT Consultation ---
Date of Consultation August 28, 2019 Assessment & Plan (1) Peritonsillar abscess: Incision and drainage History of Present Illness Reason for Consultation: Right side peritonsillar abscess Requesting Physician: Dr. Durbin History of Present Illness 63-year-old lady from [place] with increasing sore throat and dysphasia and right otalgia treated with amoxicillin at urgent care with no response CT showed a 3 cm right peritonsillar abscess Allergies Allergy/AdvReac Type Severity Reaction Status Date / Time pseudoephedrine AdvReac Intermediate INCREASES Unverified 02/04/19 15:12 HEART RATE Home Medications Home Medications Medication Instructions Recorded Confirmed Type atorvastatin 40 mg PO QPM 02/04/19 08/28/19 History calcium carbonate-vitamin D3 1 tab PO QPM 02/04/19 08/28/19 History [Calcium 600 + D(3)] cholecalciferol (vitamin D3) 1,000 unit PO QPM 02/04/19 08/28/19 History [Vitamin D3] cyanocobalamin (vitamin B-12) 1,000 mcg IM UD 02/04/19 08/28/19 History cyclobenzaprine 10 mg PO QPM 02/04/19 08/28/19 History folic acid 2 mg PO QPM 02/04/19 08/28/19 History metformin 500 mg PO TID 02/04/19 08/28/19 History metoprolol succinate 25 mg PO QPM 02/04/19 08/28/19 History pediatric multivitamin 1 tab PO QPM 02/04/19 08/28/19 History [Flintstones Multivitamin] amoxicillin-pot clavulanate 1 tab PO BID 08/28/19 08/28/19 History lisinopril 5 mg PO QPM 08/28/19 08/28/19 History methotrexate sodium 20 mg PO WK 08/28/19 08/28/19 History omega-3 fatty acids [Fish Oil 1,000 mg PO QPM 08/28/19 08/28/19 History Concentrate] tofacitinib [Xeljanz XR] 11 mg PO QPM 08/28/19 08/28/19 History Patient History Medical History CAD (coronary artery disease) "mild, non obstructive cath 2011 - 40% mid RCA lesion" Diabetes mellitus, type II (Chronic) Dyslipidemia GALLEGOS (nonalcoholic steatohepatitis) Palpitations Rheumatoid arthritis Uterine cancer Surgical History H/O gastric bypass H/O laminectomy H/O ventral hernia repair History of hysterectomy History of tonsillectomy and adenoidectomy Family History Other Alzheimer disease Heart disease Thyroid disorder Social History Preferred Language: [place] Communication Ability: Effective Solution Architect Required: No Beliefs That Will Affect Care: None Current Living Situation: Spouse Feels Safe at Home: Yes Smoking Status: Never smoker Second Hand Exposure: No ; Hx Alcohol Use: No Hx Substance Use: No Physical Exam Constitutional: WD/WN, vitals as above + acute distress (Complaining of right peritonsillar pain radiating to right ear) Eyes: PERRL, conjunctivae normal, anicteric sclerae ENMT: Mouth: + oropharynx abnormality (Bulging right soft palate with uvular shift to the left) Neck: trachea midline, no thyromegaly Respiratory: normal respiratory effort, lungs clear to auscultation Cardiovascular: RRR, no murmur, no edema Results & Data ([facility]) Vital Signs (Past 12 Hours) Vital Signs Temp Pulse Pulse Resp BP BP Pulse Ox 08/28/19 18:44 79 20 181/90 H 99 08/28/19 17:07 85 20 155/92 H 98 08/28/19 14:44 37.0 C 118 H 18 166/92 H 97
--- NOTE | 2019-08-28 19:13 | Operative Report ---
Post Operative Report Pre & Post Diagnosis Right peritonsillar abscess I identified the patient and participated in the time-out.: Yes Procedure Incision and drainage Surgeon Mirlande Boyle MD Mainframe Architect None Estimated Blood Loss 5 Findings Consistent with Post-Op Diagnosis Specimens culture Anesthesia Type Local Complications none Disposition Accompanied Patient To Recovery: Yes Disposition: Recovery Room Indications Right peritonsillar abscess for I&D Description of Procedure She was in the emergency room in the semisitting position. I used a PAPr suit and precautions. The throat was anesthetized using 1% Xylocaine with 1-100,000 strength epinephrine injection. The abscess cavity was on the right side and was aspirated with a 18-gauge needle. 5 cc of pus was evacuated. The abscess cavity was opened using the #11 blade and the hemostat. She tolerated the procedure well and will be admitted for IV antibiotics. I attest to the content of the Intraoperative Record and any orders documented therein. Any exceptions are noted below.
[2019-08-28 20:15] LABS: Adenovirus PCR Not Detected (NotDetected); Bordetella parapertussis PCR Not Detected (NotDetected); Bordetella pertussis PCR Not Detected (NotDetected); Coronavirus 229E PCR Not Detected (NotDetected); Coronavirus HKU1 PCR Not Detected (NotDetected); Coronavirus NL63 PCR Not Detected (NotDetected); Coronavirus OC43PCR Not Detected (NotDetected); Human Metapneumovirus PCR Not Detected (NotDetected); Influenza A PCR Not Detected (NotDetected); Influenza B PCR Not Detected (NotDetected); Parainfluenza Virus 1 PCR Not Detected (NotDetected); Parainfluenza Virus 2 PCR Not Detected (NotDetected); Parainfluenza Virus 3 PCR Not Detected (NotDetected); Parainfluenza Virus 4 PCR Not Detected (NotDetected); Respiratory Syncytial VirusPCR Not Detected (NotDetected); Rhinovirus/Enterovirus PCR Not Detected (NotDetected)
[2019-08-28 20:16] LABS: Chlamydia pneumoniae PCR Not Detected (NotDetected); Mycoplasma pneumoniae PCR Not Detected (NotDetected)
[2019-08-28] MEDS ORDERED: ONDANSETRON INJ 2 MG/ML 2 ML VIAL IV PRN (20:42)
[2019-08-28] MEDS ORDERED: SODIUM CHLORIDE 0.9% 1000ML 1,000 ML IV SCH (20:42)
[2019-08-28] MEDS ORDERED: ACETAMINOPHEN 325 MG TAB PO PRN (20:42)
[2019-08-28] MEDS ORDERED: lisinopriL 5 MG TAB PO ONE (21:14)
[2019-08-28] MEDS ORDERED: METOPROLOL SUCC 25MG EXT REL TAB PO STA (21:14)
[2019-08-28] MEDS ORDERED: MoRPHine SULFATE 4 MG/ML 1 ML CARP\\VIAL IV PRN (21:21)
[2019-08-28 21:45] LABS: Hematocrit (blood only) 41.1 % (37-47); Hemoglobin 13.7 g/dL (12.0-16.0); Mean Corpuscular Hgb Conc 33.3 g/dL (32-36); Mean Platelet Volume 9.5 fL (7.4-10.4); Platelet Count 331 K/uL (130-400); RDW Coefficient of Variation 15.1 % (11.5-14.5); RDW Standard Deviation 50.3 fL (36.4-46.3); Red Blood Count 4.42 M/uL (4.2-5.4); White Blood Count 12.64 K/uL (4.8-10.8)
[2019-08-28] MEDS: INSULIN ASPART 100 UNITS/ML 3 ML PEN SC SCH (22:13)
[2019-08-28] MEDS: AMPICILLIN/SULBACTAM SOD 3,000 MG in 0.9 % SODIUM CHLORIDE 100 ML IV SCH (23:44)
--- NOTE | 2019-08-28 23:49 | History and Physical Report ---
DATE OF ADMISSION: 08/28/2019 CHIEF COMPLAINT: Right neck pain. HISTORY OF PRESENT ILLNESS: This is a 63-year-old female with past medical history significant for diabetes, metabolic syndrome, hyperlipidemia, atrial septal aneurysm, CAD, hypertension, esophagitis, steatohepatitis nonalcoholic status post gastric bypass, myalgia and myositis, osteoarthrosis, hereditary and idiopathic peripheral neuropathy, history of anemia, history of rheumatoid arthritis, sicca syndrome, depression, obesity, presents with right neck pain close to the right mandible going for last few days, difficult to open the mouth and she has difficulty eating because of the pain, was placed on amoxicillin as outpatient, but was not getting better, so she came here and found to have peripharyngeal abscess, status post I and D done by ENT in the ER. She also tested for COVID which is negative. She denies any fever, chills, no sick contacts, no nausea, no vomiting, no chest pain, no cough, has some headache, no blurred visions. Has right ear pain. No runny nose, has some sore throat, no nausea, no abdominal pain. Normal bowel and bladder movements. Appetite is down today. No swelling in the legs, no rash. Currently resting comfortably and hemodynamically stable, still has some pain in the right mandibular region. ALLERGIES: PSEUDOEPHEDRINE. PAST MEDICAL HISTORY: As mentioned above. PAST SURGICAL HISTORY: Left heart catheterization, normal colonoscopy, EGD, laparoscopic procedure of the liver, laparoscopic gastric bypass, laparoscopic cholecystectomy, lumbar hemilaminectomy, nuclear medicine gastric emptying study, tonsillectomy, adenoidectomy, total abdominal hysterectomy with removal of tubes for uterine cancer, laparoscopic postoperative ventral hernia repair. MEDICATIONS: The patient is on lisinopril 5 mg p.o. daily, metformin 1000 mg p.o. b.i.d., Tofacitinib Citrate ER 11mg po daily, metoprolol succinate 25 mg p.o. daily, atorvastatin 40 mg p.o. daily, aspirin 81 mg p.o. daily, methotrexate 2.5 mg tablet 8 tablets once a week, folic acid 2 mg daily, vitamin D 1000 units daily, fish oil 1 capsule daily, calcium with vitamin D 1 tablet daily, Flintstones Complete 1 tablet daily, vitamin B12 1000 mcg injections q. 12 weeks. FAMILY HISTORY: Significant for father has heart disorder, Alzheimer disease. Mother has multiple sclerosis, brain aneurysm. Daughter Graves disease. SOCIAL HISTORY: . No smoking, no alcohol, no drug use. REVIEW OF SYMPTOMS: As per HPI. Rest of review of symptoms negative. PHYSICAL EXAMINATION: GENERAL: The patient is obese, not in acute distress. VITAL SIGNS: Temperature 36.9, pulse 109, respiratory rate 22, blood pressure 174/100, oxygen 97% room air. HEENT: Pupils equal, round, and reactive to light. NECK: Has some swelling and erythema changes below the right mandibular region. CARDIOVASCULAR: S1, S2 heard, regular rate and rhythm, no murmur, no gallop. RESPIRATORY SYSTEM: Normal AP diameter. No accessory muscle use. No wheezing, no crackles. ABDOMEN: Soft, bowel sounds present, nontender. No distention. CENTRAL NERVOUS SYSTEM: Cranial nerves II through XII grossly intact, nonfocal. EXTREMITIES: No edema, no erythema. LABORATORY DATA: WBC 11.3, hemoglobin 12.8, hematocrit 38.8, platelets 267. Sodium 138, potassium 4.6, chloride 105, bicarbonate 23, BUN 8, creatinine 0.8, serum glucose 176, calcium 9.1, total bilirubin 0.5, AST 16, ALT 25, alkaline phosphatase 133. Biosphere negative for any viral infection. Negative for COVID-[address] tissue neck [address], 3.2 x 2.7 right parapharyngeal lesion adjacent to right palatine tonsil. ASSESSMENT AND PLAN: This is a 63-year-old female who presents with right neck pain and found to have right peripharyngeal abscess. 1. Right peripharyngeal abscess, status post incision and drainage by ENT. Failed outpatient treatment with amoxicillin, started on IV Unasyn. She had COVID PCR, which was negative. Await blood cultures. Continue with Unasyn. Pain control. Placed on liquid diet for now and monitor in the hospital. 2. Diabetes. Hold p.o. medication, placed insulin sliding scale. Follow the blood sugars, follow HbA1c level. 3. History of coronary artery disease: Continue aspirin, beta rhona and statin. 4. History of hypertension. Continue lisinopril, metoprolol. Will monitor the blood pressure. 5. Hyperlipidemia. Continue statin. 6. History of rheumatoid arthritis . We will hold methotrexate for now. 7. Deep vein thrombosis prophylaxis, sequential compression devices. DISPOSITION: Closely monitor in the tele floor. Level 1 full code. MTDD
[2019-08-29] MEDS: AMPICILLIN/SULBACTAM SOD 3,000 MG in 0.9 % SODIUM CHLORIDE 100 ML IV SCH ×2 (05:58→13:04)
[2019-08-29 06:14] LABS: Hematocrit (blood only) 39.1 % (37-47); Hemoglobin 12.6 g/dL (12.0-16.0); Mean Corpuscular Hemoglobin 30.4 pg (25-34); Mean Corpuscular Hgb Conc 32.2 g/dL (32-36); Mean Corpuscular Volume 94.4 fL (80-100); Mean Platelet Volume 9.4 fL (7.4-10.4); Platelet Count 352 K/uL (130-400); RDW Coefficient of Variation 15.2 % (11.5-14.5); RDW Standard Deviation 51.7 fL (36.4-46.3); Red Blood Count 4.14 M/uL (4.2-5.4); White Blood Count 10.94 K/uL (4.8-10.8)
[2019-08-29] MEDS: INSULIN ASPART 100 UNITS/ML 3 ML PEN SC SCH ×2 (07:50→12:07)
[2019-08-29] MEDS ORDERED: ASPIRIN 81 MG ECTAB PO SCH (09:00)
--- NOTE | 2019-08-29 12:09 | Discharge Summary ---
Date of Service August 29, 2019 Admission HPI Per Admitting Provider 63-year-old female with past medical history significant for diabetes, metabolic syndrome, hyperlipidemia, atrial septal aneurysm, CAD, hypertension, esophagitis, steatohepatitis nonalcoholic status post gastric bypass, myalgia and myositis, osteoarthrosis, hereditary and idiopathic peripheral neuropathy, history of anemia, history of rheumatoid arthritis, sicca syndrome, depression, obesity, presents with right neck pain close to the right mandible going for last few days, difficult to open the mouth and she has difficulty eating because of the pain, was placed on amoxicillin as outpatient, but was not getting better, so she came here and found to have peripharyngeal abscess, status post I and D done by ENT in the ER. She also tested for COVID which is negative. She denies any fever, chills, no sick contacts, no nausea, no vomiting, no chest pain, no cough, has some headache, no blurred visions. Has right ear pain. No runny nose, has some sore throat, no nausea, no abdominal pain. Normal bowel and bladder movements. Appetite is down today. No swelling in the legs, no rash. Currently resting comfortably and hemodynamically stable, still has some pain in the right mandibular region. Admission Exam Per Admitting Provider GENERAL: The patient is obese, not in acute distress. VITAL SIGNS: Temperature 36.9, pulse 109, respiratory rate 22, blood pressure 174/100, oxygen 97% room air. HEENT: Pupils equal, round, and reactive to light. NECK: Has some swelling and erythema changes below the right mandibular region. CARDIOVASCULAR: S1, S2 heard, regular rate and rhythm, no murmur, no gallop. RESPIRATORY SYSTEM: Normal AP diameter. No accessory muscle use. No wheezing, no crackles. ABDOMEN: Soft, bowel sounds present, nontender. No distention. CENTRAL NERVOUS SYSTEM: Cranial nerves II through XII grossly intact, nonfocal. EXTREMITIES: No edema, no erythema. Principal Diagnosis Peritonsillar Abscess Discharge Exam ROS-No Headache, No Visual Changes, No Nausea, No Vomiting, No Fever, No Chills, No Neck Pain or Stiffness, No Chest Pain, No Palpitations, No SOB, No CHONG, No Cough, No Sputum, No Wheezing, No Abdominal Pain, No Diarrhea, No Hematemesis, No Hemoptysis, No Unexpected Weight Loss, No Flank pain, No Melena, No Hematochezia, No Frequency, No Urgency, No Burning, No Hematuria, No Rashes, No Diaphoresis. Appetite is Normal Physical Exam Gen-AAO x 3, NAD, Afebrile Head-NCAT, EOMI, PERRLA, Anicteric Sclera, No Posterior Pharyngeal Erythema Neck-Supple, No JVD, No Thyromegaly, No Masses, No LAD, No Bruits Lungs-Clear to Auscultation Bilaterally, No Rales, No Rhonchi, No Wheezing, No Crepitus Chest-No S4, +S1, +S2, No S3, No Murmurs, No Rubs, No Gallops, No Ectopy Abdomen-Soft, Bowel Sounds Present, Non Tender, Non Distended, No Hepatomegaly, No Splenomegaly, No Palpable Masses, No Rebound, No Rigidity, No Guarding Musculoskeletal-Full Range of Motion Bilaterally, No CVAT Extremities-No Cyanosis, No Clubbing, No Edema Nuero-Cranial Nerves II-XII grossly intact, Motor WNL, DTRs WNL, Strength WNL, Non Focal Psych-Normal Mood Discharge Data Allergies Allergy/AdvReac Type Severity Reaction Status Date / Time pseudoephedrine AdvReac Intermediate INCREASES Unverified 02/04/19 15:12 HEART RATE Consultations 08/28/19 17:57 ED Decision to Admit Stat 08/28/19 20:42 Consult Otolaryngology (Head and Neck) Routine Ordered Studies 08/28/19 14:58 CT soft tissue neck w con Stat Current Diagnoses Peritonsillar abscess (08/28/19) Allergies pseudoephedrine Adverse Reaction (Intermediate, Unverified 02/04/19 15:12) INCREASES HEART RATE Height/Weight/Isolation Height 5 ft 5 in Weight 89 kg Isolation Type Airborne Precautions,Contact Precautions Chemistry 08/28/19 15:47 Sodium 138 Potassium 4.3 Chloride 105 Carbon Dioxide 23 Anion Gap 10.0 BUN 8 Creatinine 0.80 Glucose 176 H Microbiology 08/28/19 Unknown Peritonsilar Gram Stain - Final 08/28/19 Unknown Peritonsilar Sinus Culture - Pending 08/28/19 21:19 Blood Aerobic Blood Culture - Pending 08/28/19 21:19 Blood Anaerobic Blood Culture - Pending 08/28/19 21:06 Blood Aerobic Blood Culture - Pending 08/28/19 21:06 Blood Anaerobic Blood Culture - Pending Hospital Course (1) Peritonsillar abscess: (2) Diabetes mellitus, type II: S/P I&D by Dr [place] DC home on Augmentin x 7 days, f/u in office in 2 weeks Total Time Total Time Spent Total Time Spent (In Minutes): 40 mins Total Time Includes: Examination of the Patient, Discharge Planning, Medication Reconciliation and Communication With Other Providers Discharge Plan Discharge Items Patient Disposition: Home - Self-Care Reason For Visit: RT PARAPHRYGEAL ABSCESS Discharge Diagnosis: Peritonsillar Abscess DM II Condition on Discharge: Good Activity: Resume your previous activity Lifting: Gradually increase as tolerated Bathing: No limitations Sexual Activity: When tolerated Exercise/Sports: Gradually increase as tolerated Driving/Machine Use: No limitations Weightbearing: Full weightbearing Non-emergency contact: Primary Care Provider and Surgeon Call non-emergency contact if: you have any medication questions Follow-up/Referrals: Tad Pastrana MD [Primary Care Provider] - Mirlande Boyle MD [Surgeon] - (Follow up in 2 weeks [phone] call for an opening later today) Diet: Carb Consistent or DM2 Diet Comment: Soft Diet Initially Addtl Attending Provider Instructions: None Pending Studies at Discharge: No Stand-Alone Forms: My [facility] [place], Smoking Cessation Medications and DC Order Prescriptions: New ibuprofen 200 mg capsule 600 mg PO Q6H PRN (Reason: fever or pain) Qty: 90 RF: 0 acetaminophen 325 mg capsule 650 mg PO Q6H PRN (Reason: fever or pain) Qty: 90 RF: 0 amoxicillin-pot clavulanate [Augmentin] 875-125 mg tablet 1 tab PO BID Qty: 14 RF: 0 Continued atorvastatin 40 mg tablet 40 mg PO QPM RF: 0 metformin 500 mg tablet 500 mg PO TID RF: 0 pediatric multivitamin [Flintstones Multivitamin] Tablet,Chewable 1 tab PO QPM RF: 0 folic acid 1 mg tablet 2 mg PO QPM RF: 0 metoprolol succinate 25 mg tablet extended release 24 hr 25 mg PO QPM RF: 0 cholecalciferol (vitamin D3) [Vitamin D3] 1,000 unit Capsule 1,000 unit PO QPM RF: 0 calcium carbonate-vitamin D3 [Calcium 600 + D(3)] 600 mg(1,500mg) -400 unit Tablet 1 tab PO QPM RF: 0 cyclobenzaprine 10 mg tablet 10 mg PO QPM RF: 0 cyanocobalamin (vitamin B-12) 1,000 mcg/mL Solution 1,000 mcg IM UD RF: 0 methotrexate sodium 2.5 mg tablet 20 mg PO WK RF: 0 lisinopril 5 mg tablet 5 mg PO QPM RF: 0 Xeljanz XR 11 mg tablet extended release 24 hr 11 mg PO QPM RF: 0 omega-3 fatty acids [Fish Oil Concentrate] 1,000 mg Capsule 1,000 mg PO QPM RF: 0 aspirin [Aspir-81] 81 mg Tablet,Delayed Release (Dr/Ec) 81 mg PO DAILY RF: 0 amoxicillin-pot clavulanate 875-125 mg tablet 1 tab PO BID Qty: 14 RF: 0 Discharge Orders: Discharge Order (Routine); Ordered 08/29/19 Ordered By: Herrera Irving Admission Data Admit Date/Time: 08/28/19 18:24 Attending Provider: Herrera Irving Admit Provider: Yulisa Pickard Primary Care Provider: Tad Pastrana Other Providers: Yulisa Pickard ; Mirlande Boyle
[2019-08-29] MEDS ORDERED: CALCIUM 600MG + VIT D 400 IU TAB PO SCH (21:00)
[2019-08-29] MEDS ORDERED: ATORVASTATIN 40 MG TAB PO SCH (21:00)
[2019-08-29] MEDS ORDERED: CHOLECALCIFEROL 1,000 UNITS 25 MCG TAB PO SCH (21:00)
[2019-08-29] MEDS ORDERED: METOPROLOL SUCC 25MG EXT REL TAB PO SCH (21:00)
[2019-08-29] MEDS ORDERED: FOLIC ACID 1 MG TAB PO SCH (21:00)
[2019-08-29] MEDS ORDERED: lisinopriL 5 MG TAB PO SCH (21:00)
[2019-08-29] MEDS ORDERED: MULTIVITAMIN CHEWABLE TAB PO SCH (21:00)
== END 2019-08-29 15:27 | disposition home or self-care (01) | DRG 138 ==
LOC: ED 14:42 → INTOOBSV 18:24 → SUATTDRO 18:24 → 2S 18:24